=== PATIENT | female | born 1935 | race Caucasian/White ===

== ENCOUNTER 2017-04-25 19:57 | Inpatient (IN) | payer MEDICARE, MEDICAID ==
[~2017-04-25] VITALS: Ht 152.4 cm; Wt 103.0 kg
[~2017-04-25 19:57] MED LIST: BIMA2.5D4 EACHEYE; BRIM5DRO EACHEYE
[2017-04-25 20:00] VITALS: BP 143/56
[2017-04-25 21:18] VITALS: BP 143/56
[2017-04-25] MEDS ORDERED: HYDR-519 PO (21:25)
[2017-04-25] MEDS ORDERED: GABA-529 PO (21:27)
[2017-04-25] MEDS ORDERED: CILO100T PO (21:28)
[2017-04-25] MEDS ORDERED: FURO40TA5 PO (21:29)
[2017-04-25] MEDS ORDERED: PANT40TA4 PO (21:29)
[2017-04-25] MEDS ORDERED: CLON0.1T PO (21:33)
[2017-04-25] MEDS ORDERED: NIFE90TA2 PO (21:34)
[2017-04-25] MEDS ORDERED: METO50TA5 PO (21:35)
[2017-04-25] MEDS ORDERED: HYDROCODONE/ACETAMINOPHEN 10/325MG TABLET PO PRN (22:45)
[2017-04-25] MEDS ORDERED: DEXTROSE 50% WATER 50ML SYRINGE IV PRN (22:45)
[2017-04-25] MEDS ORDERED: MEDICATION NOT ON FORMULARY EA (Brimonidine Tartrate (Alphagan P) 1 DROP) EACHEYE SCH (22:45)
[2017-04-25] MEDS ORDERED: VANCOMYCIN 1 G PREMIX 200 ML IV STA (22:52)
[2017-04-25 23:28] LABS: BASOPHILS % 0.7 % (0.0-2.0); HEMATOCRIT. 34.9 % (36.0-48.0); HEMOGLOBIN. 11.8 g/dL (12.0-16.0); LYMPHOCYTES % 23.8 % (20.0-50.0); MEAN CORPUSCULAR HEMOGLOBIN 29.5 pg (28.0-32.0); MEAN CORPUSCULAR VOLUME 87.3 fL (81.0-99.0); MEAN PLATELET VOLUME 9.3 fl (7.4-10.4); MONOCYTES % 7.4 % (2.0-8.0); NEUTROPHILS % 65.1 % (40.0-76.0); PLATELET 208 x1000/uL (130-400); RED CELL DISTRIBUTION WIDTH 14.7 % (11.6-14.6)
[2017-04-26] VITALS: BP 125/50
[2017-04-26] MEDS ORDERED: VANCOMYCIN 1500MG in DEXTROSE 5% WATER 250ML IV NR (01:00)
[2017-04-26] MEDS ORDERED: CEFEPIME HCL 1000MG/VIAL INJ IM SCH ×2 (03:00)
[2017-04-26 04:00] VITALS: BP 111/77
[2017-04-26] MEDS: BLOOD SUGAR DIAGNOSTIC STRIP TEST SCH ×4 (07:35→21:17)
[2017-04-26] MEDS: PANTOPRAZOLE 40MG DR TABLET PO SCH ×2 (07:37→17:30)
[2017-04-26 08:00] VITALS: BP 126/49
[2017-04-26] MEDS: NIFEDIPINE XL 90MG TAB PO SCH (08:34)
[2017-04-26] MEDS: CILOSTAZOL 100MG TABLET PO SCH ×2 (08:34→17:30)
[2017-04-26] MEDS: CLONIDINE 0.1MG TABLET PO SCH ×2 (08:34→21:08)
[2017-04-26] MEDS: GABAPENTIN 100MG CAPSULE PO SCH ×2 (08:35→17:31)
[2017-04-26] MEDS: METOPROLOL TARTRATE 50MG TABLET PO SCH ×2 (08:35→21:08)
[2017-04-26] MEDS: FUROSEMIDE 40MG TABLET PO SCH ×2 (08:36→21:08)
[2017-04-26] MEDS: BRIMONIDINE 0.2% OPHTH DROPS 5ML EACHEYE SCH ×2 (08:36→17:31)
[2017-04-26] MEDS: ENOXAPARIN 40MG/0.4ML SYR SUBCUT SCH ×2 (08:39→21:09)
[2017-04-26] MEDS: INSULIN LISPRO 100 UNITS/ML SUBCUT SCH ×4 (08:41→21:17)
[2017-04-26 12:00] VITALS: BP 146/57
[2017-04-26] MEDS: HYDROCODONE/ACETAMINOPHEN 10/325MG TABLET PO PRN (13:33)
[2017-04-26 15:00] VITALS: BP 152/57
[2017-04-26 20:00] VITALS: BP 131/64
[2017-04-26] MEDS ORDERED: MEDICATION NOT ON FORMULARY EA (Bimatoprost (Lumigan) 1 DROP) EACHEYE SCH (21:00)
[2017-04-26] MEDS: LATANOPROST 0.005% OPHTH DROPS 2.5ML EACHEYE SCH (21:07)
[2017-04-27] VITALS: BP 142/60
[2017-04-27] MEDS: CLONIDINE 0.1MG TABLET PO SCH ×2 (01:04→21:20)
[2017-04-27] MEDS ORDERED: CEFEPIME HCL 1000MG/VIAL INJ IM SCH (02:00)
[2017-04-27] MEDS: HYDROCODONE/ACETAMINOPHEN 10/325MG TABLET PO PRN ×2 (02:39→21:41)
[2017-04-27] MEDS ORDERED: CEFEPIME 1,000 MG in DEXTROSE 5% WATER 50 ML IV ONE (02:45)
[2017-04-27] MEDS: CEFEPIME 1,000 MG in DEXTROSE 5% WATER 50 ML IV SCH (02:54)
[2017-04-27 04:00] VITALS: BP 132/50
[2017-04-27] MEDS: VANCOMYCIN 750 MG PREMIX 150 ML IV SCH (04:53)
[2017-04-27] MEDS: BLOOD SUGAR DIAGNOSTIC STRIP TEST SCH ×4 (06:47→21:21)
[2017-04-27] MEDS: PANTOPRAZOLE 40MG DR TABLET PO SCH ×2 (06:51→17:45)
[2017-04-27 07:04] LABS: BASOPHILS % 0.6 % (0.0-2.0); EOSINOPHILS % 3.2 % (0.0-5.0); HEMATOCRIT. 33.8 % (36.0-48.0); HEMOGLOBIN. 11.2 g/dL (12.0-16.0); LYMPHOCYTES % 25.3 % (20.0-50.0); MEAN CORPUSCULAR HEMOGLOBIN 28.8 pg (28.0-32.0); MEAN PLATELET VOLUME 9.5 fl (7.4-10.4); NEUTROPHILS % 62.9 % (40.0-76.0); PLATELET 201 x1000/uL (130-400); RED BLOOD CELL COUNT 3.89 mill/uL (4.2-5.4); RED CELL DISTRIBUTION WIDTH 14.8 % (11.6-14.6)
[2017-04-27 08:00] VITALS: BP 142/57
[2017-04-27] MEDS: INSULIN LISPRO 100 UNITS/ML SUBCUT SCH ×4 (09:41→21:39)
[2017-04-27] MEDS: CILOSTAZOL 100MG TABLET PO SCH ×2 (10:57→17:44)
[2017-04-27] MEDS: BRIMONIDINE 0.2% OPHTH DROPS 5ML EACHEYE SCH ×2 (10:57→17:51)
[2017-04-27] MEDS: FUROSEMIDE 40MG TABLET PO SCH ×2 (10:58→21:20)
[2017-04-27] MEDS: NIFEDIPINE XL 90MG TAB PO SCH (10:58)
[2017-04-27] MEDS: GABAPENTIN 100MG CAPSULE PO SCH ×2 (10:58→17:44)
[2017-04-27] MEDS: METOPROLOL TARTRATE 50MG TABLET PO SCH ×2 (10:59→21:21)
[2017-04-27] MEDS: ENOXAPARIN 40MG/0.4ML SYR SUBCUT SCH ×2 (10:59→21:21)
[2017-04-27 12:00] VITALS: BP 104/53
[2017-04-27 16:00] VITALS: BP 139/53
[2017-04-27 20:00] VITALS: BP 136/55
[2017-04-27] MEDS: LATANOPROST 0.005% OPHTH DROPS 2.5ML EACHEYE SCH (21:24)
[2017-04-28] VITALS: BP 106/70
[2017-04-28] MEDS: CEFEPIME 1,000 MG in DEXTROSE 5% WATER 50 ML IV SCH (03:00)
[2017-04-28 04:00] VITALS: BP 114/51
[2017-04-28] MEDS: VANCOMYCIN 750 MG PREMIX 150 ML IV SCH (05:49)
[2017-04-28] MEDS: PANTOPRAZOLE 40MG DR TABLET PO SCH ×2 (06:51→16:50)
[2017-04-28] MEDS: BLOOD SUGAR DIAGNOSTIC STRIP TEST SCH ×4 (06:51→21:00)
[2017-04-28 08:00] VITALS: BP 127/50
[2017-04-28] MEDS: CILOSTAZOL 100MG TABLET PO SCH ×2 (08:56→16:49)
[2017-04-28] MEDS: FUROSEMIDE 40MG TABLET PO SCH ×2 (08:56→22:34)
[2017-04-28] MEDS: CLONIDINE 0.1MG TABLET PO SCH ×2 (08:56→22:34)
[2017-04-28] MEDS: NIFEDIPINE XL 90MG TAB PO SCH (08:56)
[2017-04-28] MEDS: METOPROLOL TARTRATE 50MG TABLET PO SCH ×2 (08:57→22:35)
[2017-04-28] MEDS: GABAPENTIN 100MG CAPSULE PO SCH ×2 (08:57→16:50)
[2017-04-28] MEDS: ENOXAPARIN 40MG/0.4ML SYR SUBCUT SCH ×2 (08:58→22:33)
[2017-04-28] MEDS: INSULIN LISPRO 100 UNITS/ML SUBCUT SCH ×4 (09:02→22:42)
[2017-04-28] MEDS: BRIMONIDINE 0.2% OPHTH DROPS 5ML EACHEYE SCH ×2 (09:03→16:51)
[2017-04-28 12:00] VITALS: BP 131/50
[2017-04-28] MEDS: HYDROCODONE/ACETAMINOPHEN 10/325MG TABLET PO PRN (15:44)
[2017-04-28 16:00] VITALS: BP 119/47
[2017-04-28 20:00] VITALS: BP 129/56
[2017-04-28] MEDS: LATANOPROST 0.005% OPHTH DROPS 2.5ML EACHEYE SCH (22:34)
[2017-04-29] VITALS: BP 134/56
[2017-04-29] MEDS: CEFEPIME 1,000 MG in DEXTROSE 5% WATER 50 ML IV SCH (03:00)
[2017-04-29] MEDS: VANCOMYCIN 750 MG PREMIX 150 ML IV SCH (05:00)
[2017-04-29] MEDS: INSULIN LISPRO 100 UNITS/ML SUBCUT SCH ×2 (07:50→12:39)
[2017-04-29] MEDS: BLOOD SUGAR DIAGNOSTIC STRIP TEST SCH ×2 (08:00→12:35)
[2017-04-29] MEDS ORDERED: LIDOCAINE HCL 1% 20ML VIAL (Pyxis) INJ ONE (09:46)
[2017-04-29] MEDS: NIFEDIPINE XL 90MG TAB PO SCH (11:10)
[2017-04-29] MEDS: CILOSTAZOL 100MG TABLET PO SCH (11:10)
[2017-04-29] MEDS: PANTOPRAZOLE 40MG DR TABLET PO SCH (11:10)
[2017-04-29] MEDS: CLONIDINE 0.1MG TABLET PO SCH (11:10)
[2017-04-29] MEDS: FUROSEMIDE 40MG TABLET PO SCH (11:10)
[2017-04-29] MEDS: METOPROLOL TARTRATE 50MG TABLET PO SCH (11:11)
[2017-04-29] MEDS: ENOXAPARIN 40MG/0.4ML SYR SUBCUT SCH (11:11)
[2017-04-29] MEDS: GABAPENTIN 100MG CAPSULE PO SCH (11:11)
[2017-04-29] MEDS: BRIMONIDINE 0.2% OPHTH DROPS 5ML EACHEYE SCH (11:11)
[2017-04-29] MEDS: HYDROCODONE/ACETAMINOPHEN 10/325MG TABLET PO PRN (17:37)
[2017-04-29 18:16] VITALS: BP 120/64
== END 2017-04-29 17:40 | disposition home health service (06) | DRG 603 ==
LOC: 6EST 19:57
PROVIDERS: ADMIT Internal Medicine; ATTEND Internal Medicine
PROC: 02HV33Z Insertion of Infusion Device into Superior Vena Cava, Percutaneous Approach (ICD-10-PCS; principal; 2017-04-29)
PROC: B5181ZA Fluoroscopy of Superior Vena Cava using Low Osmolar Contrast, Guidance (ICD-10-PCS; 2017-04-29)
PROC: B548ZZA Ultrasonography of Superior Vena Cava, Guidance (ICD-10-PCS; 2017-04-29)
DX: L03.116 Cellulitis of left lower limb (principal); E11.42 Type 2 diabetes mellitus with diabetic polyneuropathy; Z68.41 Body mass index [BMI] 40.0-44.9, adult; E66.01 Morbid (severe) obesity due to excess calories; L03.115 Cellulitis of right lower limb; I10 Essential (primary) hypertension; M51.86 Other intervertebral disc disorders, lumbar region; Z79.4 Long term (current) use of insulin
CPT/HCPCS: 36415; 36569; 76937; 77001; 80048; 82962; 85025; 87040; C1725; C1893; J0692; J1650; J1815; J3370; J3490; J7030; J7060

== ENCOUNTER 2019-04-30 14:32 | Emergency (ER) | payer MEDICARE, MEDICAID ==
[~2019-04-30] VITALS: Ht 160 cm; Wt 100.0 kg
[~2019-04-30 14:32] MED LIST changes: +CARI350T27 PO; +CILO50TA PO; +CLON0.1T PO; +FURO40TA5 PO; +GABA-529 PO; +HYDR-519 PO; +LEVVL SQ; +METO-539 PO; +NIFE90TA2 PO; +PANT40TA4 PO; +PYRI200T10 PO
[2019-04-30] MEDS ORDERED: ACETAMINOPHEN 650MG/20.3ML UDC PO ONE (16:30)
[2019-04-30] MEDS ORDERED: TETANUS, DIPHTHERIA, PERTUSSIS VAC/PF 0.5ML (>7YR OLD) IM ONE (18:00)
[2019-04-30] MEDS ORDERED: LIDOCAINE HCL/PF 1% 10 MG/ML 5ML VIAL IJ ONE (18:00)
[2019-04-30] MEDS ORDERED: BACITRACIN/POLYMYXIN B SULFATE OINT 15GM TOP ONE (18:00)
[2019-04-30 18:55] VITALS: BP 168/77
== END 2019-04-30 18:56 | disposition home or self-care (01) ==
LOC: ER 14:46
DX: S81.812A Laceration without foreign body, left lower leg, initial encounter (principal); Z23 Encounter for immunization; W01.0XXA Fall on same level from slipping, tripping and stumbling without subsequent striking against object, initial encounter; Y93.01 Activity, walking, marching and hiking; Y92.89 Other specified places as the place of occurrence of the external cause; Y99.8 Other external cause status
CPT/HCPCS: 73590; 90471; 90715; 99283; J3490

== ENCOUNTER 2021-01-02 11:30 | Inpatient (IN) | payer MEDICARE, MEDICAID ==
[~2021-01-02] VITALS: Ht 157.5 cm; Wt 103.0 kg
[~2021-01-02 11:30] MED LIST changes: -PANT40TA4 PO; +PANT40TA51 PO
[2021-01-02 12:47] LABS: BASOPHILS % 0.4 % (0.0-2.0); HEMATOCRIT. 32.7 % (36.0-48.0); HEMOGLOBIN. 11.5 g/dL (12.0-16.0); MEAN CORPUSCULAR HEMOGLOBIN 30.7 pg (28.0-32.0); MEAN CORPUSCULAR VOLUME 86.9 fL (81.0-99.0); MEAN PLATELET VOLUME 8.8 fl (7.4-10.4); MONOCYTES % 7.4 % (2.0-8.0); NEUTROPHILS % 77.2 % (40.0-76.0); PLATELET 336 x1000/uL (130-400); RED BLOOD CELL COUNT 3.76 mill/uL (4.2-5.4); RED CELL DISTRIBUTION WIDTH 14.7 % (11.6-14.6)
[2021-01-02 12:48] LABS: CHLORIDE 98 mEq/L (98-107)
[2021-01-02] MEDS ORDERED: ACETAMINOPHEN 650MG SUPP PR PRN (14:15)
[2021-01-02] MEDS ORDERED: ACETAMINOPHEN 325MG TABLET PO PRN (14:15)
[2021-01-02] MEDS ORDERED: GUAIFENESIN 200MG/10ML SUGAR FREE UDC PO PRN (14:15)
[2021-01-02] MEDS ORDERED: DEXTROSE 50% WATER 50ML SYRINGE IV PRN (14:15)
[2021-01-02] MEDS ORDERED: NA PHOS,M-B/NA PHOS,DI-BA ENEMA 118ML PR PRN (14:15)
[2021-01-02] MEDS ORDERED: DOCUSATE SODIUM 100MG CAPSULE PO PRN (14:15)
[2021-01-02] MEDS ORDERED: MAGNESIUM/ALUMINUM HYDROXIDE/SIMETHICONE 30ML UDC PO PRN (14:15)
[2021-01-02] MEDS ORDERED: DIPHENHYDRAMINE 50MG/ML VIAL IV PRN (14:15)
[2021-01-02] MEDS ORDERED: IPRATROPIUM/ALBUTEROL 0.5-3(2.5)MG/3ML NEB NEB PRN (14:15)
[2021-01-02] MEDS ORDERED: ONDANSETRON HCL 4MG/2ML INJ IV PRN (14:15)
[2021-01-02] MEDS ORDERED: LORAZEPAM 0.5MG TABLET PO PRN (14:15)
[2021-01-02] MEDS ORDERED: CEFTRIAXONE 1 G PREMIX 50 ML IV SCH (16:00)
[2021-01-02] MEDS: SODIUM CHLORIDE 0.9% 1,000 ML IV SCH (17:00)
[2021-01-02] MEDS: BLOOD SUGAR DIAGNOSTIC STRIP TEST SCH (17:30)
[2021-01-02] MEDS: HYDROCODONE/ACETAMINOPHEN 5/325MG TABLET PO PRN (17:36)
[2021-01-02] MEDS: INSULIN LISPRO 100 UNITS/ML SUBCUT SCH (18:51)
[2021-01-02 20:04] LABS: INR 1.1; PROTHROMBIN TIME 11.5 sec (9.6-11.0)
[2021-01-02 21:58] LABS: CLARITY URINE CLEAR (CLEAR); COLOR URINE YELLOW (YELLOW); KETONES URINE NEGATIVE (NEGATIVE); LEUKOCYTE ESTERASE URINE 3+ (NEGATIVE); NITRITE URINE POSITIVE (NEGATIVE); OCCULT BLOOD URINE TRACE (NEGATIVE); PROTEIN URINE NEGATIVE (NEGATIVE); SPECIFIC GRAVITY URINE 1.011 (1.005-1.030); UROBILINOGEN URINE 0.2 E.U./dL (0.2-1.0)
[2021-01-02] MEDS: FAMOTIDINE 20MG TABLET PO SCH (21:59)
[2021-01-02 23:00] VITALS: BP 169/58
[2021-01-03] VITALS: BP 169/58
[2021-01-03] MEDS: HYDROCODONE/ACETAMINOPHEN 5/325MG TABLET PO PRN (01:00)
[2021-01-03] MEDS ORDERED: LEVO25TA7 MT (02:20)
[2021-01-03] MEDS ORDERED: LOSA50TA41 MT (02:20)
[2021-01-03] MEDS ORDERED: LEVVL SQ (02:20)
[2021-01-03] MEDS ORDERED: DULO30CA52 MT (02:20)
[2021-01-03 04:00] VITALS: BP 160/70
[2021-01-03] MEDS: CLONIDINE 0.1MG TABLET PO PRN ×2 (05:38→10:39)
[2021-01-03 07:20] LABS: BASOPHILS % 0.6 % (0.0-2.0); EOSINOPHILS % 1.1 % (0.0-5.0); HEMATOCRIT. 35.4 % (36.0-48.0); HEMOGLOBIN. 11.9 g/dL (12.0-16.0); LYMPHOCYTES % 16.1 % (20.0-50.0); MEAN CORPUSCULAR HEMOGLOBIN 29.1 pg (28.0-32.0); MEAN CORPUSCULAR VOLUME 86.9 fL (81.0-99.0); MEAN PLATELET VOLUME 9.1 fl (7.4-10.4); MONOCYTES % 8.2 % (2.0-8.0); PLATELET 390 x1000/uL (130-400); RED BLOOD CELL COUNT 4.08 mill/uL (4.2-5.4); RED CELL DISTRIBUTION WIDTH 14.7 % (11.6-14.6)
[2021-01-03 07:24] LABS: CHLORIDE 101 mEq/L (98-107)
[2021-01-03 07:49] LABS: LDL CHOLESTEROL 84 mg/dL (5-100)
[2021-01-03] MEDS: INSULIN LISPRO 100 UNITS/ML SUBCUT SCH ×5 (07:50→21:07)
[2021-01-03 07:51] LABS: T4 FREE 1.28 ng/dL (0.76-1.46)
[2021-01-03 07:53] LABS: HDL CHOLESTEROL 35 mg/dL (40-59)
[2021-01-03 08:00] VITALS: BP 177/60
[2021-01-03] MEDS: MORPHINE SULFATE 2 MG/ML CPJ (NOT FOR IM USE) IV PRN (10:41)
[2021-01-03 12:00] VITALS: BP 157/59
[2021-01-03] MEDS: BLOOD SUGAR DIAGNOSTIC STRIP TEST SCH ×3 (12:19→20:56)
[2021-01-03] MEDS ORDERED: POTASSIUM CHLORIDE 20MEQ TABLET SR PO SCH (14:00)
[2021-01-03 16:00] VITALS: BP 182/62
[2021-01-03] MEDS: FUROSEMIDE 40MG TABLET PO SCH (18:16)
[2021-01-03] MEDS: CLONIDINE 0.1MG TABLET PO SCH (18:16)
[2021-01-03] MEDS: CEFTRIAXONE 1,000 MG in DEXTROSE 5% WATER 50 ML IV SCH (18:17)
[2021-01-03 20:00] VITALS: BP 118/70
[2021-01-03] MEDS: METOPROLOL TARTRATE 50MG TABLET PO SCH (21:05)
[2021-01-03] MEDS: PANTOPRAZOLE 40MG DR TABLET PO SCH (21:06)
[2021-01-03] MEDS: FAMOTIDINE 20MG TABLET PO SCH (21:06)
[2021-01-03] MEDS: INSULIN GLARGINE UD 100 UNITS/ML SYR SUBCUT SCH (21:07)
[2021-01-04] VITALS (7 sets, daily range): BP systolic 97–164; BP diastolic 41–71
[2021-01-04] MEDS: FUROSEMIDE 40MG TABLET PO SCH ×2 (06:32→17:23)
[2021-01-04] MEDS: LEVOTHYROXINE SODIUM 25MCG TABLET PO SCH (06:32)
[2021-01-04] MEDS: SODIUM CHLORIDE 0.9% 1,000 ML IV SCH (06:32)
[2021-01-04 06:59] LABS: BASOPHILS % 0.5 % (0.0-2.0); EOSINOPHILS % 1.8 % (0.0-5.0); HEMATOCRIT. 34.9 % (36.0-48.0); HEMOGLOBIN. 11.9 g/dL (12.0-16.0); LYMPHOCYTES % 17.3 % (20.0-50.0); MEAN CORPUSCULAR HEMOGLOBIN 29.7 pg (28.0-32.0); MEAN PLATELET VOLUME 8.8 fl (7.4-10.4); MONOCYTES % 9.5 % (2.0-8.0); NEUTROPHILS % 70.9 % (40.0-76.0); PLATELET 393 x1000/uL (130-400); RED BLOOD CELL COUNT 4.01 mill/uL (4.2-5.4); RED CELL DISTRIBUTION WIDTH 14.9 % (11.6-14.6)
[2021-01-04] MEDS: BLOOD SUGAR DIAGNOSTIC STRIP TEST SCH ×4 (07:20→21:00)
[2021-01-04] MEDS: CLONIDINE 0.1MG TABLET PO SCH ×2 (09:09→17:24)
[2021-01-04] MEDS: DULOXETINE HCL 30MG DR CAPSULE PO SCH (09:09)
[2021-01-04] MEDS: NIFEDIPINE XL 90MG TAB PO SCH (09:09)
[2021-01-04] MEDS: METOPROLOL TARTRATE 50MG TABLET PO SCH ×2 (09:10→22:01)
[2021-01-04] MEDS: LOSARTAN POTASSIUM 50 MG TABLET PO SCH (09:10)
[2021-01-04] MEDS: PANTOPRAZOLE 40MG DR TABLET PO SCH ×2 (09:10→22:00)
[2021-01-04] MEDS: MORPHINE SULFATE 2 MG/ML CPJ (NOT FOR IM USE) IV PRN (09:24)
[2021-01-04] MEDS: INSULIN LISPRO 100 UNITS/ML SUBCUT SCH ×4 (09:39→22:05)
[2021-01-04] MEDS: CEFTRIAXONE 1,000 MG in DEXTROSE 5% WATER 50 ML IV SCH (17:23)
[2021-01-04] MEDS: CLOTRIMAZOLE/BETAMETHASONE 1/0.05% CREAM 15GM TOP SCH (18:00)
[2021-01-04] MEDS: INSULIN GLARGINE UD 100 UNITS/ML SYR SUBCUT SCH (22:00)
[2021-01-04] MEDS: FAMOTIDINE 20MG TABLET PO SCH (22:00)
[2021-01-05 06:27] LABS: BASOPHILS % 0.5 % (0.0-2.0); EOSINOPHILS % 1.6 % (0.0-5.0); HEMATOCRIT. 34.2 % (36.0-48.0); HEMOGLOBIN. 11.7 g/dL (12.0-16.0); LYMPHOCYTES % 18.1 % (20.0-50.0); MEAN CORPUSCULAR HEMOGLOBIN 29.8 pg (28.0-32.0); MEAN CORPUSCULAR VOLUME 87.3 fL (81.0-99.0); MONOCYTES % 8.2 % (2.0-8.0); NEUTROPHILS % 71.6 % (40.0-76.0); PLATELET 372 x1000/uL (130-400); RED BLOOD CELL COUNT 3.92 mill/uL (4.2-5.4); RED CELL DISTRIBUTION WIDTH 14.6 % (11.6-14.6)
[2021-01-05] MEDS: LEVOTHYROXINE SODIUM 25MCG TABLET PO SCH (06:54)
[2021-01-05] MEDS: FUROSEMIDE 40MG TABLET PO SCH ×2 (06:54→16:43)
[2021-01-05] MEDS: BLOOD SUGAR DIAGNOSTIC STRIP TEST SCH ×4 (07:07→20:51)
[2021-01-05 08:00] VITALS: BP 132/60
[2021-01-05] MEDS: LOSARTAN POTASSIUM 50 MG TABLET PO SCH (08:27)
[2021-01-05] MEDS: METOPROLOL TARTRATE 50MG TABLET PO SCH ×2 (08:27→20:51)
[2021-01-05] MEDS: NIFEDIPINE XL 90MG TAB PO SCH (08:28)
[2021-01-05] MEDS: DULOXETINE HCL 30MG DR CAPSULE PO SCH (08:28)
[2021-01-05] MEDS: PANTOPRAZOLE 40MG DR TABLET PO SCH ×2 (08:28→20:50)
[2021-01-05] MEDS: CLOTRIMAZOLE/BETAMETHASONE 1/0.05% CREAM 15GM TOP SCH ×2 (08:28→16:54)
[2021-01-05] MEDS: CLONIDINE 0.1MG TABLET PO SCH ×2 (08:28→16:43)
[2021-01-05] MEDS: INSULIN LISPRO 100 UNITS/ML SUBCUT SCH ×4 (08:33→20:52)
[2021-01-05] MEDS: SODIUM CHLORIDE 0.9% 1,000 ML IV SCH (08:34)
[2021-01-05] MEDS ORDERED: POTASSIUM CHLORIDE 20MEQ TABLET SR PO NR (11:45)
[2021-01-05 12:00] VITALS: BP 148/53
[2021-01-05] MEDS: MORPHINE SULFATE 2 MG/ML CPJ (NOT FOR IM USE) IV PRN ×2 (12:13→16:44)
[2021-01-05 16:00] VITALS: BP 152/50
[2021-01-05] MEDS: CEFTRIAXONE 1,000 MG in DEXTROSE 5% WATER 50 ML IV SCH (16:41)
[2021-01-05 17:00] VITALS: BP 130/54
[2021-01-05] MEDS ORDERED: DEXAMETHASONE 4MG TABLET PO SCH (18:00)
[2021-01-05 20:00] VITALS: BP 127/51
[2021-01-05] MEDS: FAMOTIDINE 20MG TABLET PO SCH (20:50)
[2021-01-05] MEDS: DEXAMETHASONE 4MG TABLET PO SCH (20:51)
[2021-01-05] MEDS: INSULIN GLARGINE UD 100 UNITS/ML SYR SUBCUT SCH (22:14)
[2021-01-06] VITALS (9 sets, daily range): BP systolic 110–196; BP diastolic 54–71
[2021-01-06] MEDS: LEVOTHYROXINE SODIUM 25MCG TABLET PO SCH (06:24)
[2021-01-06] MEDS: BLOOD SUGAR DIAGNOSTIC STRIP TEST SCH ×4 (07:41→21:53)
[2021-01-06 07:42] LABS: HEMATOCRIT 33.4 % (36.0-48.0); HEMOGLOBIN 11.4 g/dL (12.0-16.0); MEAN CORPUSCULAR VOLUME 88.1 fL (81.0-99.0); PLATELET 311 x1000/uL (130-400); RED BLOOD CELL COUNT 3.79 mill/uL (4.2-5.4); RED CELL DISTRIBUTION WIDTH 14.7 % (11.6-14.6)
[2021-01-06] MEDS ORDERED: FUROSEMIDE 40MG TABLET PO SCH (09:00)
[2021-01-06] MEDS: PANTOPRAZOLE 40MG DR TABLET PO SCH (09:12)
[2021-01-06] MEDS: DEXAMETHASONE 4MG TABLET PO SCH (09:13)
[2021-01-06] MEDS: DULOXETINE HCL 30MG DR CAPSULE PO SCH (09:13)
[2021-01-06] MEDS: CLOTRIMAZOLE/BETAMETHASONE 1/0.05% CREAM 15GM TOP SCH ×2 (09:13→17:35)
[2021-01-06] MEDS: INSULIN LISPRO 100 UNITS/ML SUBCUT SCH ×4 (09:18→21:51)
[2021-01-06] MEDS: NIFEDIPINE XL 90MG TAB PO SCH (09:20)
[2021-01-06] MEDS: METOPROLOL TARTRATE 50MG TABLET PO SCH ×2 (09:20→21:53)
[2021-01-06] MEDS: LOSARTAN POTASSIUM 50 MG TABLET PO SCH (09:20)
[2021-01-06] MEDS: CLONIDINE 0.1MG TABLET PO SCH ×2 (09:22→17:41)
[2021-01-06] MEDS: CEFTRIAXONE 1,000 MG in DEXTROSE 5% WATER 50 ML IV SCH (17:35)
[2021-01-06] MEDS: AZITHROMYCIN 500 MG in DEXT 5% WATER 250 ML IV SCH (18:10)
[2021-01-06] MEDS: IPRATROPIUM/ALBUTEROL 0.5-3(2.5)MG/3ML NEB HHN SCH (20:51)
[2021-01-06] MEDS: INSULIN GLARGINE UD 100 UNITS/ML SYR SUBCUT SCH (21:51)
[2021-01-06] MEDS: FAMOTIDINE 20MG TABLET PO SCH (21:52)
[2021-01-06] MEDS: GUAIFENESIN 600MG ER TABLET PO SCH (21:52)
[2021-01-07] VITALS: BP 139/52
[2021-01-07] MEDS: IPRATROPIUM/ALBUTEROL 0.5-3(2.5)MG/3ML NEB HHN SCH ×3 (01:19→12:00)
[2021-01-07] MEDS: MORPHINE SULFATE 2 MG/ML CPJ (NOT FOR IM USE) IV PRN (01:20)
[2021-01-07 04:00] VITALS: BP 148/59
[2021-01-07 06:15] LABS: BASOPHILS % 0.4 % (0.0-2.0); HEMATOCRIT. 34.6 % (36.0-48.0); HEMOGLOBIN. 11.6 g/dL (12.0-16.0); LYMPHOCYTES % 14.2 % (20.0-50.0); MEAN CORPUSCULAR HEMOGLOBIN 29.2 pg (28.0-32.0); MEAN CORPUSCULAR VOLUME 87.1 fL (81.0-99.0); MONOCYTES % 6.4 % (2.0-8.0); PLATELET 335 x1000/uL (130-400); RED BLOOD CELL COUNT 3.97 mill/uL (4.2-5.4); RED CELL DISTRIBUTION WIDTH 14.4 % (11.6-14.6)
[2021-01-07] MEDS: BLOOD SUGAR DIAGNOSTIC STRIP TEST SCH ×4 (06:34→21:52)
[2021-01-07] MEDS: LEVOTHYROXINE SODIUM 25MCG TABLET PO SCH (06:34)
[2021-01-07] MEDS: INSULIN LISPRO 100 UNITS/ML SUBCUT SCH ×5 (07:36→21:51)
[2021-01-07 08:00] VITALS: BP 163/68
[2021-01-07] MEDS: LOSARTAN POTASSIUM 50 MG TABLET PO SCH (08:19)
[2021-01-07] MEDS: CLONIDINE 0.1MG TABLET PO SCH ×2 (08:19→18:43)
[2021-01-07] MEDS: NIFEDIPINE XL 90MG TAB PO SCH (08:20)
[2021-01-07] MEDS: GUAIFENESIN 600MG ER TABLET PO SCH ×2 (08:20→21:49)
[2021-01-07] MEDS: METOPROLOL TARTRATE 50MG TABLET PO SCH ×2 (08:20→21:49)
[2021-01-07] MEDS: DULOXETINE HCL 30MG DR CAPSULE PO SCH (08:20)
[2021-01-07] MEDS: CLOTRIMAZOLE/BETAMETHASONE 1/0.05% CREAM 15GM TOP SCH ×2 (08:21→18:44)
[2021-01-07] MEDS: DEXAMETHASONE 4MG TABLET PO SCH (09:38)
[2021-01-07] MEDS ORDERED: POTASSIUM CHLORIDE 20MEQ TABLET SR PO NR (11:30)
[2021-01-07 12:00] VITALS: BP 160/56
[2021-01-07] MEDS: CLONIDINE 0.1MG TABLET PO PRN (13:56)
[2021-01-07 16:00] VITALS: BP 150/59
[2021-01-07] MEDS: CEFTRIAXONE 1,000 MG in DEXTROSE 5% WATER 50 ML IV SCH (16:24)
[2021-01-07] MEDS: AZITHROMYCIN 500 MG in DEXT 5% WATER 250 ML IV SCH (18:44)
[2021-01-07 18:48] LABS: BG BASE EXCESS -0.1 mmol/L (-2.0-2.0); BG CARBOXYHEMOGLOBIN 0.2 % (0.5-1.5); BG DEOXYHEMOGLOBIN 4.6 % (0.0-5.0); BG FRACTION INSPIRED OXYGEN 21; BG OXYGEN SATURATION 95.4 % (92.0-98.5); BG OXYHEMOGLOBIN 95.2 % (94.0-97.0); BG PCO2 32.8 mmHg (35.0-45.0); BG PH 7.464 (7.350-7.450); BG PO2 74.2 mmHg (75.0-100.0); BG SAMPLE SITE RIGHT RADIAL; BG TOTAL HEMOGLOBIN 13.1 g/dL (12.0-18.0); BG VENT MODE ROOM AIR
[2021-01-07 20:00] VITALS: BP 104/59
[2021-01-07] MEDS: FAMOTIDINE 20MG TABLET PO SCH (21:48)
[2021-01-07] MEDS: INSULIN GLARGINE UD 100 UNITS/ML SYR SUBCUT SCH (21:52)
[2021-01-08] VITALS: BP 158/67
[2021-01-08] MEDS: IPRATROPIUM/ALBUTEROL 0.5-3(2.5)MG/3ML NEB HHN SCH ×3 (02:49→15:08)
[2021-01-08 04:00] VITALS: BP 129/70
[2021-01-08] MEDS: LEVOTHYROXINE SODIUM 25MCG TABLET PO SCH (06:21)
[2021-01-08] MEDS: BLOOD SUGAR DIAGNOSTIC STRIP TEST SCH ×3 (06:21→17:20)
[2021-01-08 06:25] LABS: BASOPHILS % 0.5 % (0.0-2.0); EOSINOPHILS % 0.3 % (0.0-5.0); HEMATOCRIT. 35.5 % (36.0-48.0); HEMOGLOBIN. 12.1 g/dL (12.0-16.0); LYMPHOCYTES % 18.3 % (20.0-50.0); MEAN CORPUSCULAR HEMOGLOBIN 29.2 pg (28.0-32.0); MEAN PLATELET VOLUME 9.4 fl (7.4-10.4); MONOCYTES % 7.5 % (2.0-8.0); NEUTROPHILS % 73.4 % (40.0-76.0); PLATELET 407 x1000/uL (130-400); RED BLOOD CELL COUNT 4.13 mill/uL (4.2-5.4); RED CELL DISTRIBUTION WIDTH 14.8 % (11.6-14.6)
[2021-01-08] MEDS: INSULIN LISPRO 100 UNITS/ML SUBCUT SCH ×3 (07:50→18:01)
[2021-01-08 08:00] VITALS: BP 159/59
[2021-01-08] MEDS: NIFEDIPINE XL 90MG TAB PO SCH (09:26)
[2021-01-08] MEDS: DULOXETINE HCL 30MG DR CAPSULE PO SCH (09:27)
[2021-01-08] MEDS: DEXAMETHASONE 4MG TABLET PO SCH (09:27)
[2021-01-08] MEDS: METOPROLOL TARTRATE 50MG TABLET PO SCH (09:28)
[2021-01-08] MEDS: CLONIDINE 0.1MG TABLET PO SCH ×2 (09:28→17:47)
[2021-01-08] MEDS: LOSARTAN POTASSIUM 50 MG TABLET PO SCH (09:28)
[2021-01-08] MEDS: GUAIFENESIN 600MG ER TABLET PO SCH (09:28)
[2021-01-08] MEDS: CLOTRIMAZOLE/BETAMETHASONE 1/0.05% CREAM 15GM TOP SCH ×2 (09:30→18:11)
[2021-01-08] MEDS ORDERED: HYDROCODONE/ACETAMINOPHEN 5/325MG TABLET PO PRN (11:45)
[2021-01-08 12:00] VITALS: BP 104/51
[2021-01-08 16:00] VITALS: BP 139/55
[2021-01-08] MEDS ORDERED: POTASSIUM CHLORIDE 20MEQ TABLET SR PO NR (17:00)
[2021-01-08] MEDS: AZITHROMYCIN 500 MG in DEXT 5% WATER 250 ML IV SCH (18:06)
[2021-01-08 18:14] VITALS: BP 139/55
[2021-01-09] MEDS ORDERED: METO2.5T2 PO (12:52)
== END 2021-01-08 20:00 | DRG 551 ==
LOC: ER 11:30 → SUPCPDRO 14:04 → 6EST 17:31 → ENRESERV 19:46
PROVIDERS: ADMIT Internal Medicine; ATTEND Internal Medicine
DX: M48.061 Spinal stenosis, lumbar region without neurogenic claudication (principal); G93.41 Metabolic encephalopathy; G82.50 Quadriplegia, unspecified; L97.909 Non-pressure chronic ulcer of unspecified part of unspecified lower leg with unspecified severity; E87.1 Hypo-osmolality and hyponatremia; N17.9 Acute kidney failure, unspecified; N39.0 Urinary tract infection, site not specified; L03.115 Cellulitis of right lower limb; L03.116 Cellulitis of left lower limb; M47.26 Other spondylosis with radiculopathy, lumbar region; M48.02 Spinal stenosis, cervical region; B96.5 Pseudomonas (aeruginosa) (mallei) (pseudomallei) as the cause of diseases classified elsewhere; D64.9 Anemia, unspecified; E03.9 Hypothyroidism, unspecified; E11.65 Type 2 diabetes mellitus with hyperglycemia; E66.01 Morbid (severe) obesity due to excess calories; E78.00 Pure hypercholesterolemia, unspecified; F01.50 Vascular dementia, unspecified severity, without behavioral disturbance, psychotic disturbance, mood disturbance, and anxiety; E78.5 Hyperlipidemia, unspecified; G89.29 Other chronic pain; R26.9 Unspecified abnormalities of gait and mobility; I11.9 Hypertensive heart disease without heart failure; R13.10 Dysphagia, unspecified; Z79.02 Long term (current) use of antithrombotics/antiplatelets; Z79.4 Long term (current) use of insulin; Z79.899 Other long term (current) drug therapy; Z98.1 Arthrodesis status
CPT/HCPCS: 36415; 36600; 70551; 71045; 72100; 72141; 72146; 72148; 73590; 80048; 80053; 80061; 81003; 82375; 82805; 82962; 83036; 83880; 84439; 84443; 84484; 85025; 85027; 86850; 86900; 87077; 87186; 92523; 92610; 93005; 93306; 93970; 94640; 97116; 97162; 97166; 97530; 99285; J0456; J0696; J1815; J2270; J2405; J7040; J7060; J8540

== ENCOUNTER 2021-01-08 20:03 | Inpatient (IN) | payer MEDICARE, MEDICAID ==
[~2021-01-08] VITALS: Ht 149.9 cm; Wt 95.7 kg
[~2021-01-08 20:03] MED LIST changes: -CARI350T27 PO; +DULO30CA52 MT; +LEVO25TA7 MT; +LOSA50TA41 MT
[2021-01-08 20:05] VITALS: BP 135/59
[2021-01-08] MEDS ORDERED: CLONIDINE 0.1MG TABLET PO PRN (21:15)
[2021-01-08] MEDS ORDERED: NA PHOS,M-B/NA PHOS,DI-BA ENEMA 118ML PR PRN (21:15)
[2021-01-08] MEDS ORDERED: GUAIFENESIN 200MG/10ML SUGAR FREE UDC PO PRN (21:15)
[2021-01-08] MEDS ORDERED: ACETAMINOPHEN 650MG SUPP PR PRN (21:15)
[2021-01-08] MEDS ORDERED: DIPHENHYDRAMINE 50MG/ML VIAL IV PRN (21:15)
[2021-01-08] MEDS ORDERED: DEXTROSE 50% WATER 50ML SYRINGE IV PRN (21:15)
[2021-01-08] MEDS ORDERED: ONDANSETRON HCL 4MG/2ML INJ IV PRN (21:15)
[2021-01-08] MEDS ORDERED: MAGNESIUM/ALUMINUM HYDROXIDE/SIMETHICONE 30ML UDC PO PRN (21:15)
[2021-01-08] MEDS ORDERED: IPRATROPIUM/ALBUTEROL 0.5-3(2.5)MG/3ML NEB HHN PRN (21:15)
[2021-01-08] MEDS: METOPROLOL TARTRATE 50MG TABLET PO SCH (22:27)
[2021-01-08] MEDS: FAMOTIDINE 20MG TABLET PO SCH (22:27)
[2021-01-08] MEDS: BLOOD SUGAR DIAGNOSTIC STRIP TEST SCH (22:28)
[2021-01-08] MEDS: INSULIN GLARGINE UD 100 UNITS/ML SYR SUBCUT SCH (23:55)
[2021-01-08] MEDS: INSULIN LISPRO 100 UNITS/ML SUBCUT SCH (23:56)
[2021-01-08] MEDS: GUAIFENESIN 600MG ER TABLET PO SCH (23:57)
[2021-01-09] MEDS: IPRATROPIUM/ALBUTEROL 0.5-3(2.5)MG/3ML NEB HHN SCH ×4 (02:17→21:01)
[2021-01-09] MEDS: BLOOD SUGAR DIAGNOSTIC STRIP TEST SCH ×4 (06:04→20:59)
[2021-01-09] MEDS: LEVOTHYROXINE SODIUM 25MCG TABLET PO SCH (06:04)
[2021-01-09 06:54] LABS: CHLORIDE 107 mEq/L (98-107)
[2021-01-09 07:08] LABS: BASOPHILS % 1.1 % (0.0-2.0); EOSINOPHILS % 1.7 % (0.0-5.0); HEMATOCRIT. 35.7 % (36.0-48.0); HEMOGLOBIN. 12.2 g/dL (12.0-16.0); LYMPHOCYTES % 20.3 % (20.0-50.0); MEAN CORPUSCULAR HEMOGLOBIN 30.3 pg (28.0-32.0); MEAN CORPUSCULAR VOLUME 88.2 fL (81.0-99.0); MONOCYTES % 7.4 % (2.0-8.0); NEUTROPHILS % 69.5 % (40.0-76.0); PLATELET 373 x1000/uL (130-400); RED BLOOD CELL COUNT 4.05 mill/uL (4.2-5.4); RED CELL DISTRIBUTION WIDTH 14.7 % (11.6-14.6)
[2021-01-09] MEDS: INSULIN LISPRO 100 UNITS/ML SUBCUT SCH ×4 (07:23→21:14)
[2021-01-09 07:53] VITALS: BP 166/69
[2021-01-09] MEDS ORDERED: DULOXETINE HCL 30MG DR CAPSULE PO SCH (09:00)
[2021-01-09] MEDS ORDERED: FUROSEMIDE 40MG TABLET PO SCH (09:00)
[2021-01-09] MEDS: DEXAMETHASONE 4MG TABLET PO SCH (09:12)
[2021-01-09] MEDS: GUAIFENESIN 600MG ER TABLET PO SCH ×2 (09:12→21:14)
[2021-01-09] MEDS: CLOTRIMAZOLE/BETAMETHASONE 1/0.05% CREAM 15GM TOP SCH ×2 (09:13→19:12)
[2021-01-09] MEDS: CLONIDINE 0.1MG TABLET PO SCH ×2 (09:13→18:47)
[2021-01-09] MEDS: METOPROLOL TARTRATE 50MG TABLET PO SCH ×2 (09:13→20:58)
[2021-01-09] MEDS: NIFEDIPINE XL 90MG TAB PO SCH (09:13)
[2021-01-09] MEDS: LOSARTAN POTASSIUM 50 MG TABLET PO SCH (09:13)
[2021-01-09] MEDS: HYDROCODONE/ACETAMINOPHEN 5/325MG TABLET PO PRN ×3 (09:25→21:00)
[2021-01-09] MEDS ORDERED: METOLAZONE 2.5MG TABLET PO SCH (12:30)
[2021-01-09] MEDS ORDERED: METO2.5T2 PO (12:52)
[2021-01-09 15:48] LABS: CLARITY URINE CLEAR (CLEAR); COLOR URINE YELLOW (YELLOW); KETONES URINE NEGATIVE (NEGATIVE); LEUKOCYTE ESTERASE URINE NEGATIVE (NEGATIVE); NITRITE URINE NEGATIVE (NEGATIVE); OCCULT BLOOD URINE NEGATIVE (NEGATIVE); PROTEIN URINE 1+ (NEGATIVE); SPECIFIC GRAVITY URINE 1.012 (1.005-1.030); UROBILINOGEN URINE 0.2 E.U./dL (0.2-1.0)
[2021-01-09] MEDS ORDERED: AZITHROMYCIN 250 MG in DEXT 5% WATER 250 ML IV SCH (18:30)
[2021-01-09] MEDS: AZITHROMYCIN 500 MG in DEXT 5% WATER 250 ML IV SCH (19:10)
[2021-01-09 20:00] VITALS: BP 137/57
[2021-01-09] MEDS: FAMOTIDINE 20MG TABLET PO SCH (20:59)
[2021-01-09] MEDS: INSULIN GLARGINE UD 100 UNITS/ML SYR SUBCUT SCH (21:09)
[2021-01-09 22:00] VITALS: BP 140/38
[2021-01-10] MEDS: ENOXAPARIN 40MG/0.4ML SYR SUBCUT SCH ×2 (00:10→23:30)
[2021-01-10] MEDS: IPRATROPIUM/ALBUTEROL 0.5-3(2.5)MG/3ML NEB HHN SCH ×4 (01:45→21:45)
[2021-01-10] MEDS: LEVOTHYROXINE SODIUM 25MCG TABLET PO SCH (06:15)
[2021-01-10] MEDS: BLOOD SUGAR DIAGNOSTIC STRIP TEST SCH ×4 (06:15→20:38)
[2021-01-10] MEDS: INSULIN LISPRO 100 UNITS/ML SUBCUT SCH ×4 (06:16→22:34)
[2021-01-10] MEDS: HYDROCODONE/ACETAMINOPHEN 5/325MG TABLET PO PRN ×3 (06:16→14:29)
[2021-01-10 06:49] VITALS: BP 157/77
[2021-01-10 06:54] LABS: BASOPHILS % 0.6 % (0.0-2.0); EOSINOPHILS % 0.3 % (0.0-5.0); LYMPHOCYTES % 25.7 % (20.0-50.0); MEAN CORPUSCULAR HEMOGLOBIN 29.2 pg (28.0-32.0); MEAN CORPUSCULAR VOLUME 87.8 fL (81.0-99.0); MEAN PLATELET VOLUME 8.5 fl (7.4-10.4); MONOCYTES % 7.3 % (2.0-8.0); NEUTROPHILS % 66.1 % (40.0-76.0); PLATELET 358 x1000/uL (130-400); RED CELL DISTRIBUTION WIDTH 14.7 % (11.6-14.6)
[2021-01-10 06:59] LABS: CHLORIDE 106 mEq/L (98-107)
[2021-01-10 07:06] LABS: TOTAL IRON BINDING CAPACITY 226 ug/dL (250-450)
[2021-01-10 07:22] LABS: FOLIC ACID (FOLATE) SERUM 8.6 ng/mL (>5.38)
[2021-01-10 07:41] VITALS: BP 111/44
[2021-01-10] MEDS: GUAIFENESIN 600MG ER TABLET PO SCH ×2 (08:15→20:38)
[2021-01-10] MEDS: DULOXETINE HCL 30MG DR CAPSULE PO SCH (08:15)
[2021-01-10] MEDS: DEXAMETHASONE 4MG TABLET PO SCH (08:16)
[2021-01-10] MEDS: METOPROLOL TARTRATE 50MG TABLET PO SCH ×2 (08:16→20:38)
[2021-01-10] MEDS: DOCUSATE SODIUM 100MG CAPSULE PO PRN (08:20)
[2021-01-10] MEDS: LOSARTAN POTASSIUM 50 MG TABLET PO SCH (08:20)
[2021-01-10] MEDS: NIFEDIPINE XL 90MG TAB PO SCH (08:25)
[2021-01-10 08:26] VITALS: BP 147/42
[2021-01-10] MEDS: CLOTRIMAZOLE/BETAMETHASONE 1/0.05% CREAM 15GM TOP SCH ×2 (08:44→16:57)
[2021-01-10 09:31] VITALS: BP 140/44
[2021-01-10] MEDS: CLONIDINE 0.1MG TABLET PO SCH ×2 (09:35→16:57)
[2021-01-10] MEDS ORDERED: CYANOCOBALAMIN 1000MCG/ML VIAL IM NR (11:30)
[2021-01-10 16:51] VITALS: BP 154/53
[2021-01-10] MEDS: AZITHROMYCIN 500 MG in DEXT 5% WATER 250 ML IV SCH (17:12)
[2021-01-10 20:00] VITALS: BP 133/55
[2021-01-10] MEDS: FAMOTIDINE 20MG TABLET PO SCH (20:38)
[2021-01-10] MEDS: INSULIN GLARGINE UD 100 UNITS/ML SYR SUBCUT SCH (22:33)
[2021-01-11] MEDS: IPRATROPIUM/ALBUTEROL 0.5-3(2.5)MG/3ML NEB HHN SCH ×4 (01:26→20:16)
[2021-01-11] MEDS: LEVOTHYROXINE SODIUM 25MCG TABLET PO SCH (06:03)
[2021-01-11] MEDS: BLOOD SUGAR DIAGNOSTIC STRIP TEST SCH ×4 (06:04→21:32)
[2021-01-11] MEDS: INSULIN LISPRO 100 UNITS/ML SUBCUT SCH ×4 (06:04→21:41)
[2021-01-11] MEDS: HYDROCODONE/ACETAMINOPHEN 5/325MG TABLET PO PRN ×3 (06:45→16:41)
[2021-01-11 08:00] VITALS: BP 145/51
[2021-01-11] MEDS: METOPROLOL TARTRATE 50MG TABLET PO SCH ×2 (08:38→20:59)
[2021-01-11] MEDS: DEXAMETHASONE 4MG TABLET PO SCH (08:38)
[2021-01-11] MEDS: DULOXETINE HCL 30MG DR CAPSULE PO SCH (08:38)
[2021-01-11] MEDS: CLONIDINE 0.1MG TABLET PO SCH ×2 (08:38→16:42)
[2021-01-11] MEDS: LOSARTAN POTASSIUM 50 MG TABLET PO SCH (08:39)
[2021-01-11] MEDS: NIFEDIPINE XL 90MG TAB PO SCH (08:39)
[2021-01-11] MEDS: GUAIFENESIN 600MG ER TABLET PO SCH ×2 (08:42→21:33)
[2021-01-11] MEDS: CLOTRIMAZOLE/BETAMETHASONE 1/0.05% CREAM 15GM TOP SCH ×2 (08:42→16:57)
[2021-01-11 12:00] VITALS: BP 153/65
[2021-01-11 20:00] VITALS: BP 100/64
[2021-01-11] MEDS: ACETAMINOPHEN 325MG TABLET PO PRN (21:33)
[2021-01-11] MEDS: FAMOTIDINE 20MG TABLET PO SCH (21:33)
[2021-01-11] MEDS: ENOXAPARIN 40MG/0.4ML SYR SUBCUT SCH (21:34)
[2021-01-11] MEDS: INSULIN GLARGINE UD 100 UNITS/ML SYR SUBCUT SCH (21:42)
[2021-01-12] MEDS: HYDROCODONE/ACETAMINOPHEN 5/325MG TABLET PO PRN ×4 (04:51→20:33)
[2021-01-12] MEDS: LEVOTHYROXINE SODIUM 25MCG TABLET PO SCH (05:56)
[2021-01-12] MEDS: BLOOD SUGAR DIAGNOSTIC STRIP TEST SCH ×4 (05:56→21:00)
[2021-01-12] MEDS: INSULIN LISPRO 100 UNITS/ML SUBCUT SCH ×4 (05:56→22:47)
[2021-01-12 07:14] LABS: BASOPHILS % 0.2 % (0.0-2.0); EOSINOPHILS % 0.3 % (0.0-5.0); HEMATOCRIT. 35.4 % (36.0-48.0); HEMOGLOBIN. 11.9 g/dL (12.0-16.0); LYMPHOCYTES % 25.6 % (20.0-50.0); MEAN CORPUSCULAR HEMOGLOBIN 29.3 pg (28.0-32.0); MEAN CORPUSCULAR VOLUME 87.3 fL (81.0-99.0); MONOCYTES % 6.9 % (2.0-8.0); PLATELET 337 x1000/uL (130-400); RED BLOOD CELL COUNT 4.06 mill/uL (4.2-5.4); RED CELL DISTRIBUTION WIDTH 14.7 % (11.6-14.6)
[2021-01-12] MEDS: IPRATROPIUM/ALBUTEROL 0.5-3(2.5)MG/3ML NEB HHN SCH ×4 (07:34→20:44)
[2021-01-12 07:54] VITALS: BP 155/68
[2021-01-12] MEDS: CLONIDINE 0.1MG TABLET PO SCH ×2 (08:08→16:53)
[2021-01-12] MEDS: DULOXETINE HCL 30MG DR CAPSULE PO SCH (08:08)
[2021-01-12] MEDS: METOPROLOL TARTRATE 50MG TABLET PO SCH ×2 (08:08→22:39)
[2021-01-12] MEDS: DEXAMETHASONE 4MG TABLET PO SCH (08:09)
[2021-01-12] MEDS: GUAIFENESIN 600MG ER TABLET PO SCH ×2 (08:09→22:39)
[2021-01-12] MEDS: LOSARTAN POTASSIUM 50 MG TABLET PO SCH (08:09)
[2021-01-12] MEDS: NIFEDIPINE XL 90MG TAB PO SCH (08:09)
[2021-01-12] MEDS: CLOTRIMAZOLE/BETAMETHASONE 1/0.05% CREAM 15GM TOP SCH ×2 (08:10→16:53)
[2021-01-12] MEDS: METOLAZONE 2.5MG TABLET PO SCH (08:11)
[2021-01-12 14:09] VITALS: BP 153/60
[2021-01-12 16:26] VITALS: BP 144/43
[2021-01-12] MEDS: DOCUSATE SODIUM 100MG CAPSULE PO PRN (16:54)
[2021-01-12 20:00] VITALS: BP 147/52
[2021-01-12] MEDS: FAMOTIDINE 20MG TABLET PO SCH (22:39)
[2021-01-12] MEDS: ENOXAPARIN 40MG/0.4ML SYR SUBCUT SCH (22:40)
[2021-01-12] MEDS: INSULIN GLARGINE UD 100 UNITS/ML SYR SUBCUT SCH (22:48)
[2021-01-13] MEDS: IPRATROPIUM/ALBUTEROL 0.5-3(2.5)MG/3ML NEB HHN SCH ×4 (01:31→20:34)
[2021-01-13] MEDS: LEVOTHYROXINE SODIUM 25MCG TABLET PO SCH (06:25)
[2021-01-13] MEDS: HYDROCODONE/ACETAMINOPHEN 5/325MG TABLET PO PRN ×3 (06:28→20:41)
[2021-01-13] MEDS: BLOOD SUGAR DIAGNOSTIC STRIP TEST SCH ×4 (06:29→21:23)
[2021-01-13] MEDS: INSULIN LISPRO 100 UNITS/ML SUBCUT SCH ×4 (06:29→23:00)
[2021-01-13] MEDS: DEXAMETHASONE 4MG TABLET PO SCH (08:05)
[2021-01-13] MEDS: NIFEDIPINE XL 90MG TAB PO SCH (08:06)
[2021-01-13] MEDS: CLONIDINE 0.1MG TABLET PO SCH ×2 (08:06→17:15)
[2021-01-13] MEDS: METOPROLOL TARTRATE 50MG TABLET PO SCH ×2 (08:06→22:43)
[2021-01-13] MEDS: GUAIFENESIN 600MG ER TABLET PO SCH ×2 (08:07→22:42)
[2021-01-13] MEDS: DULOXETINE HCL 30MG DR CAPSULE PO SCH (08:07)
[2021-01-13] MEDS: ACETAMINOPHEN 325MG TABLET PO PRN (08:08)
[2021-01-13] MEDS: CLOTRIMAZOLE/BETAMETHASONE 1/0.05% CREAM 15GM TOP SCH ×2 (08:11→17:10)
[2021-01-13] MEDS: LOSARTAN POTASSIUM 50 MG TABLET PO SCH (08:11)
[2021-01-13 08:27] VITALS: BP 162/43
[2021-01-13 20:00] VITALS: BP 142/66
[2021-01-13] MEDS: FAMOTIDINE 20MG TABLET PO SCH (22:43)
[2021-01-13] MEDS: ENOXAPARIN 40MG/0.4ML SYR SUBCUT SCH (23:01)
[2021-01-13] MEDS: INSULIN GLARGINE UD 100 UNITS/ML SYR SUBCUT SCH (23:01)
[2021-01-14] MEDS: IPRATROPIUM/ALBUTEROL 0.5-3(2.5)MG/3ML NEB HHN SCH ×2 (01:12→21:22)
[2021-01-14] MEDS: BLOOD SUGAR DIAGNOSTIC STRIP TEST SCH ×4 (05:55→21:31)
[2021-01-14] MEDS: INSULIN LISPRO 100 UNITS/ML SUBCUT SCH ×4 (05:56→21:32)
[2021-01-14] MEDS: LEVOTHYROXINE SODIUM 25MCG TABLET PO SCH (05:58)
[2021-01-14] MEDS: HYDROCODONE/ACETAMINOPHEN 5/325MG TABLET PO PRN ×3 (05:58→21:32)
[2021-01-14 06:26] LABS: BASOPHILS % 0.6 % (0.0-2.0); EOSINOPHILS % 0.3 % (0.0-5.0); HEMATOCRIT. 38.1 % (36.0-48.0); HEMOGLOBIN. 12.6 g/dL (12.0-16.0); LYMPHOCYTES % 24.1 % (20.0-50.0); MEAN CORPUSCULAR HEMOGLOBIN 29.1 pg (28.0-32.0); MEAN CORPUSCULAR VOLUME 87.6 fL (81.0-99.0); MEAN PLATELET VOLUME 8.9 fl (7.4-10.4); MONOCYTES % 6.6 % (2.0-8.0); NEUTROPHILS % 68.4 % (40.0-76.0); PLATELET 292 x1000/uL (130-400); RED BLOOD CELL COUNT 4.34 mill/uL (4.2-5.4)
[2021-01-14 06:36] LABS: CHLORIDE 109 mEq/L (98-107)
[2021-01-14 06:51] LABS: PROTHROMBIN TIME 11.2 sec (9.6-11.0)
[2021-01-14 08:07] VITALS: BP 118/58
[2021-01-14] MEDS: CLOTRIMAZOLE/BETAMETHASONE 1/0.05% CREAM 15GM TOP SCH ×2 (09:32→16:59)
[2021-01-14] MEDS: NIFEDIPINE XL 90MG TAB PO SCH (09:32)
[2021-01-14] MEDS: DULOXETINE HCL 30MG DR CAPSULE PO SCH (09:33)
[2021-01-14] MEDS: CLONIDINE 0.1MG TABLET PO SCH ×2 (09:33→16:59)
[2021-01-14] MEDS: LOSARTAN POTASSIUM 50 MG TABLET PO SCH (09:33)
[2021-01-14] MEDS: METOPROLOL TARTRATE 50MG TABLET PO SCH ×2 (09:33→21:33)
[2021-01-14] MEDS: GUAIFENESIN 600MG ER TABLET PO SCH ×2 (09:33→21:32)
[2021-01-14] MEDS: DEXAMETHASONE 4MG TABLET PO SCH (09:33)
[2021-01-14 15:33] LABS: CLARITY URINE CLEAR (CLEAR); COLOR URINE YELLOW (YELLOW); KETONES URINE NEGATIVE (NEGATIVE); LEUKOCYTE ESTERASE URINE NEGATIVE (NEGATIVE); NITRITE URINE NEGATIVE (NEGATIVE); OCCULT BLOOD URINE NEGATIVE (NEGATIVE); PH URINE 6.5 (4.5-8.0); PROTEIN URINE TRACE (NEGATIVE); SPECIFIC GRAVITY URINE 1.012 (1.005-1.030); UROBILINOGEN URINE 0.2 E.U./dL (0.2-1.0)
[2021-01-14] MEDS ORDERED: LEVOFLOXACIN 500MG TABLET PO NR (17:30)
[2021-01-14 20:00] VITALS: BP 127/78
[2021-01-14] MEDS: BUDESONIDE 0.5MG/2ML NEB HHN SCH (21:22)
[2021-01-14] MEDS: INSULIN GLARGINE UD 100 UNITS/ML SYR SUBCUT SCH (21:31)
[2021-01-14] MEDS: FAMOTIDINE 20MG TABLET PO SCH (21:32)
[2021-01-14] MEDS: ENOXAPARIN 40MG/0.4ML SYR SUBCUT SCH (21:33)
[2021-01-15] MEDS: IPRATROPIUM/ALBUTEROL 0.5-3(2.5)MG/3ML NEB HHN SCH ×2 (02:06→13:51)
[2021-01-15] MEDS: HYDROCODONE/ACETAMINOPHEN 5/325MG TABLET PO PRN ×4 (04:42→22:51)
[2021-01-15] MEDS: BLOOD SUGAR DIAGNOSTIC STRIP TEST SCH ×4 (06:30→20:52)
[2021-01-15] MEDS: LEVOTHYROXINE SODIUM 25MCG TABLET PO SCH (06:30)
[2021-01-15 07:45] VITALS: BP 105/48
[2021-01-15] MEDS: INSULIN LISPRO 100 UNITS/ML SUBCUT SCH ×4 (09:00→21:12)
[2021-01-15] MEDS: CLOTRIMAZOLE/BETAMETHASONE 1/0.05% CREAM 15GM TOP SCH ×2 (09:23→17:19)
[2021-01-15] MEDS: GUAIFENESIN 600MG ER TABLET PO SCH ×2 (09:23→21:00)
[2021-01-15] MEDS: DULOXETINE HCL 30MG DR CAPSULE PO SCH (09:23)
[2021-01-15] MEDS: CLONIDINE 0.1MG TABLET PO SCH ×2 (09:27→17:06)
[2021-01-15] MEDS: METOPROLOL TARTRATE 50MG TABLET PO SCH ×2 (09:27→21:00)
[2021-01-15] MEDS: NIFEDIPINE XL 90MG TAB PO SCH (09:28)
[2021-01-15] MEDS: METOLAZONE 2.5MG TABLET PO SCH (09:46)
[2021-01-15] MEDS: LEVOFLOXACIN 250MG TABLET PO SCH (10:59)
[2021-01-15 11:36] LABS: BASOPHILS % 0.4 % (0.0-2.0); EOSINOPHILS % 0.4 % (0.0-5.0); HEMATOCRIT. 37.1 % (36.0-48.0); HEMOGLOBIN. 12.7 g/dL (12.0-16.0); LYMPHOCYTES % 18.1 % (20.0-50.0); MEAN CORPUSCULAR HEMOGLOBIN 29.8 pg (28.0-32.0); MEAN CORPUSCULAR VOLUME 87.3 fL (81.0-99.0); MEAN PLATELET VOLUME 8.7 fl (7.4-10.4); MONOCYTES % 8.4 % (2.0-8.0); NEUTROPHILS % 72.7 % (40.0-76.0); PLATELET 287 x1000/uL (130-400); RED BLOOD CELL COUNT 4.25 mill/uL (4.2-5.4); RED CELL DISTRIBUTION WIDTH 15.3 % (11.6-14.6)
[2021-01-15] MEDS ORDERED: LORAZEPAM 0.5MG TABLET PO PRN (12:45)
[2021-01-15] MEDS: BUDESONIDE 0.5MG/2ML NEB HHN SCH (13:52)
[2021-01-15 20:00] VITALS: BP 146/65
[2021-01-15] MEDS: ENOXAPARIN 40MG/0.4ML SYR SUBCUT SCH (20:59)
[2021-01-15] MEDS: FAMOTIDINE 20MG TABLET PO SCH (21:00)
[2021-01-15] MEDS: INSULIN GLARGINE UD 100 UNITS/ML SYR SUBCUT SCH (21:01)
[2021-01-16] MEDS: IPRATROPIUM/ALBUTEROL 0.5-3(2.5)MG/3ML NEB HHN SCH ×3 (01:07→12:05)
[2021-01-16] MEDS: BUDESONIDE 0.5MG/2ML NEB HHN SCH ×2 (01:07→08:47)
[2021-01-16 05:24] LABS: HEMATOCRIT 37.8 % (36.0-48.0); HEMOGLOBIN 12.5 g/dL (12.0-16.0); MEAN CORPUSCULAR HEMOGLOBIN 28.9 pg (28.0-32.0); MEAN CORPUSCULAR VOLUME 87.7 fL (81.0-99.0); PLATELET 267 x1000/uL (130-400); RED BLOOD CELL COUNT 4.31 mill/uL (4.2-5.4); RED CELL DISTRIBUTION WIDTH 14.9 % (11.6-14.6)
[2021-01-16] MEDS: LEVOTHYROXINE SODIUM 25MCG TABLET PO SCH (06:37)
[2021-01-16] MEDS: BLOOD SUGAR DIAGNOSTIC STRIP TEST SCH ×2 (06:37→11:47)
[2021-01-16] MEDS: HYDROCODONE/ACETAMINOPHEN 5/325MG TABLET PO PRN (06:38)
[2021-01-16 08:00] VITALS: BP 130/48
[2021-01-16 08:21] VITALS: BP 130/48
[2021-01-16] MEDS: INSULIN LISPRO 100 UNITS/ML SUBCUT SCH ×2 (09:00→12:46)
[2021-01-16] MEDS: CLOTRIMAZOLE/BETAMETHASONE 1/0.05% CREAM 15GM TOP SCH ×2 (09:00→09:04)
[2021-01-16] MEDS: CLONIDINE 0.1MG TABLET PO SCH (09:01)
[2021-01-16] MEDS: NIFEDIPINE XL 90MG TAB PO SCH (09:01)
[2021-01-16] MEDS: METOPROLOL TARTRATE 50MG TABLET PO SCH (09:02)
[2021-01-16] MEDS: GUAIFENESIN 600MG ER TABLET PO SCH (09:02)
[2021-01-16] MEDS: DULOXETINE HCL 30MG DR CAPSULE PO SCH (09:02)
[2021-01-16] MEDS: LEVOFLOXACIN 250MG TABLET PO SCH (11:28)
[2021-01-16 12:06] VITALS: BP 134/48
[2021-01-16] MEDS ORDERED: HYDR-4001 MT (12:18)
[2021-01-16] MEDS ORDERED: LEVO250T58 MT (12:18)
[2021-01-16] MEDS ORDERED: INSU100I28 SQ (12:18)
[2021-01-16] MEDS ORDERED: METO2.5T2 MT (12:18)
[2021-01-16] MEDS ORDERED: METO-539 MT (12:18)
[2021-01-16] MEDS ORDERED: DULO60CA44 PO (12:18)
[2021-01-16] MEDS ORDERED: FAMO-135 PO (12:18)
[2021-01-16] MEDS ORDERED: CLON0.1T MT (12:18)
[2021-01-16] MEDS ORDERED: ALBU90AE INH (12:18)
[2021-01-16] MEDS ORDERED: LEVO25TA2 MT (12:18)
[2021-01-16] MEDS ORDERED: NIFE90TA2 MT (12:18)
[2021-01-16 17:06] LABS: 25-HYDROXY VITAMIN D3 28 ng/mL (.)
== END 2021-01-16 14:05 | disposition home health service (06) | DRG 551 ==
PROVIDERS: ADMIT Physical Medicine & Rehabilitation Spinal Cord Injury Medicine; ATTEND Internal Medicine
DX: M48.02 Spinal stenosis, cervical region (principal); G82.50 Quadriplegia, unspecified; G93.40 Encephalopathy, unspecified; L97.909 Non-pressure chronic ulcer of unspecified part of unspecified lower leg with unspecified severity; N17.9 Acute kidney failure, unspecified; N39.0 Urinary tract infection, site not specified; F33.1 Major depressive disorder, recurrent, moderate; L03.119 Cellulitis of unspecified part of limb; M48.54XA Collapsed vertebra, not elsewhere classified, thoracic region, initial encounter for fracture; Z68.41 Body mass index [BMI] 40.0-44.9, adult; B96.5 Pseudomonas (aeruginosa) (mallei) (pseudomallei) as the cause of diseases classified elsewhere; D64.9 Anemia, unspecified; E03.9 Hypothyroidism, unspecified; E11.9 Type 2 diabetes mellitus without complications; E66.01 Morbid (severe) obesity due to excess calories; E78.5 Hyperlipidemia, unspecified; G89.29 Other chronic pain; I10 Essential (primary) hypertension; J45.909 Unspecified asthma, uncomplicated; M48.061 Spinal stenosis, lumbar region without neurogenic claudication; M54.10 Radiculopathy, site unspecified; R13.10 Dysphagia, unspecified; F09 Unspecified mental disorder due to known physiological condition; R26.89 Other abnormalities of gait and mobility; R53.81 Other malaise; R79.89 Other specified abnormal findings of blood chemistry; R53.1 Weakness; R82.4 Acetonuria; M47.816 Spondylosis without myelopathy or radiculopathy, lumbar region; J06.9 Acute upper respiratory infection, unspecified; M19.90 Unspecified osteoarthritis, unspecified site; M75.00 Adhesive capsulitis of unspecified shoulder; Z79.02 Long term (current) use of antithrombotics/antiplatelets; Z79.4 Long term (current) use of insulin; Z79.890 Hormone replacement therapy; Z79.899 Other long term (current) drug therapy; Z87.440 Personal history of urinary (tract) infections
CPT/HCPCS: 36415; 71045; 71046; 73030; 80048; 80053; 81003; 82306; 82607; 82728; 82746; 82962; 83540; 83550; 84134; 84443; 85025; 85027; 87077; 87186; 92523; 92610; 93970; 94640; 97110; 97116; 97162; 97166; 97530; 97535; C1893; J0456; J1650; J1815; J3420; J7060; J7626; J8540

== ENCOUNTER 2021-01-23 22:29 | Inpatient (IN) | payer MEDICARE, MEDICAID ==
[~2021-01-23] VITALS: Ht 149.9 cm; Wt 99.3 kg
[2021-01-23 21:40] VITALS: BP 130/56
[~2021-01-23 22:29] MED LIST changes: +ALBU90AE INH; +CLON0.1T MT; -CLON0.1T PO; +DULO60CA44 PO; +FAMO-135 PO; +HYDR-4001 MT; +INSU100I28 SQ; +LEVO250T58 MT; +LEVO25TA2 MT; -LEVO25TA7 MT; -LOSA50TA41 MT; +METO-539 MT; -METO-539 PO; +METO2.5T2 MT; +NIFE90TA2 MT; -NIFE90TA2 PO; -PANT40TA51 PO; +SODIUM BICARBONATE 650 MG TABLET PO SCH
[2021-01-23] MEDS ORDERED: DEXTROSE 50% WATER 50ML SYRINGE IV PRN (22:45)
[2021-01-23] MEDS ORDERED: LEVOTHYROXINE SODIUM 25MCG TABLET PO SCH (22:45)
[2021-01-23] MEDS ORDERED: LORAZEPAM 2MG/ML CPJ IV PRN (22:45)
[2021-01-23] MEDS ORDERED: IPRATROPIUM/ALBUTEROL 0.5-3(2.5)MG/3ML NEB HHN PRN (22:45)
[2021-01-23] MEDS ORDERED: ENOXAPARIN 40MG/0.4ML SYR SUBCUT ONE (22:45)
[2021-01-23] MEDS ORDERED: NALOXONE HCL 0.4 MG/ML 1ML VIAL IV PRN (22:45)
[2021-01-24] MEDS ORDERED: DULOXETINE HCL 60MG DR CAPSULE PO SCH
[2021-01-24] MEDS: SODIUM CHLORIDE 0.9% 1,000 ML IV SCH ×3 (00:16→17:28)
[2021-01-24] MEDS: PIPERACILLIN/TAZOBACTAM 2.25 G in DEXTROSE 5% WATER 50 ML IV SCH ×2 (00:16→06:29)
[2021-01-24] MEDS: SODIUM BICARBONATE 650 MG TABLET PO SCH ×3 (00:16→17:24)
[2021-01-24] MEDS: IPRATROPIUM/ALBUTEROL 0.5-3(2.5)MG/3ML NEB HHN SCH ×4 (02:30→21:33)
[2021-01-24] MEDS: VANCOMYCIN 1 G PREMIX 200 ML IV SCH (05:08)
[2021-01-24] MEDS ORDERED: SODIUM BICARBONATE 650 MG TABLET PO SCH (06:00)
[2021-01-24] MEDS: LEVOTHYROXINE SODIUM 25MCG TABLET PO SCH (06:29)
[2021-01-24] MEDS: BLOOD SUGAR DIAGNOSTIC STRIP TEST SCH ×4 (06:29→21:00)
[2021-01-24 06:32] LABS: BASOPHILS % 0.4 % (0.0-2.0); EOSINOPHILS % 1.8 % (0.0-5.0); HEMATOCRIT. 34.1 % (36.0-48.0); LYMPHOCYTES % 10.2 % (20.0-50.0); MEAN CORPUSCULAR HEMOGLOBIN 28.3 pg (28.0-32.0); MEAN CORPUSCULAR VOLUME 88.1 fL (81.0-99.0); MONOCYTES % 7.4 % (2.0-8.0); NEUTROPHILS % 80.2 % (40.0-76.0); PLATELET 233 x1000/uL (130-400); RED BLOOD CELL COUNT 3.87 mill/uL (4.2-5.4); RED CELL DISTRIBUTION WIDTH 15.6 % (11.6-14.6)
[2021-01-24 06:40] LABS: CHLORIDE 113 mEq/L (98-107)
[2021-01-24 07:38] VITALS: BP 152/57
[2021-01-24] MEDS: HYDROCODONE/ACETAMINOPHEN 5/325MG TABLET PO PRN ×3 (08:19→19:50)
[2021-01-24] MEDS: DULOXETINE HCL 60MG DR CAPSULE PO SCH (08:19)
[2021-01-24] MEDS: INSULIN LISPRO 100 UNITS/ML SUBCUT SCH ×4 (08:23→21:59)
[2021-01-24] MEDS: ENOXAPARIN 40MG/0.4ML SYR SUBCUT SCH (08:26)
[2021-01-24] MEDS: PIPERACILLIN/TAZOBACTAM 3.375G in DEXT 5% WATER 50ML IV SCH ×2 (14:53→21:59)
[2021-01-24] MEDS: BISACODYL 5MG TABLET PO PRN (18:43)
[2021-01-24 20:00] VITALS: BP 170/62
[2021-01-24] MEDS ORDERED: FURO-151 PO (20:28)
[2021-01-24] MEDS ORDERED: LOSA50TA41 PO (20:28)
[2021-01-24] MEDS ORDERED: METO2.5T2 PO (20:28)
[2021-01-24] MEDS ORDERED: LOSARTAN POTASSIUM 50 MG TABLET PO SCH (21:00)
[2021-01-25] MEDS: VANCOMYCIN 1 G PREMIX 200 ML IV SCH (00:07)
[2021-01-25] MEDS: SODIUM BICARBONATE 650 MG TABLET PO SCH ×3 (00:07→16:26)
[2021-01-25] MEDS: IPRATROPIUM/ALBUTEROL 0.5-3(2.5)MG/3ML NEB HHN SCH ×4 (02:09→21:16)
[2021-01-25] MEDS: PIPERACILLIN/TAZOBACTAM 3.375G in DEXT 5% WATER 50ML IV SCH ×4 (03:06→21:15)
[2021-01-25] MEDS: SODIUM CHLORIDE 0.9% 1,000 ML IV SCH ×2 (05:05→14:58)
[2021-01-25] MEDS: LEVOTHYROXINE SODIUM 25MCG TABLET PO SCH (06:10)
[2021-01-25] MEDS: BLOOD SUGAR DIAGNOSTIC STRIP TEST SCH ×4 (06:10→20:22)
[2021-01-25] MEDS: INSULIN LISPRO 100 UNITS/ML SUBCUT SCH ×4 (06:17→21:16)
[2021-01-25 06:32] LABS: BASOPHILS % 0.4 % (0.0-2.0); EOSINOPHILS % 2.6 % (0.0-5.0); HEMATOCRIT. 32.5 % (36.0-48.0); HEMOGLOBIN. 11.1 g/dL (12.0-16.0); LYMPHOCYTES % 14.1 % (20.0-50.0); MEAN CORPUSCULAR HEMOGLOBIN 29.8 pg (28.0-32.0); MEAN PLATELET VOLUME 7.7 fl (7.4-10.4); NEUTROPHILS % 75.9 % (40.0-76.0); PLATELET 204 x1000/uL (130-400); RED BLOOD CELL COUNT 3.74 mill/uL (4.2-5.4); RED CELL DISTRIBUTION WIDTH 15.8 % (11.6-14.6)
[2021-01-25 06:53] LABS: CHLORIDE 108 mEq/L (98-107)
[2021-01-25 07:02] LABS: TOTAL IRON BINDING CAPACITY 165 ug/dL (250-450)
[2021-01-25] MEDS ORDERED: FUROSEMIDE 40MG TABLET PO SCH (07:15)
[2021-01-25 07:41] VITALS: BP 146/50
[2021-01-25 08:20] LABS: FOLIC ACID (FOLATE) SERUM 8.2 ng/mL (>5.38)
[2021-01-25] MEDS: DULOXETINE HCL 60MG DR CAPSULE PO SCH (08:42)
[2021-01-25] MEDS: ENOXAPARIN 40MG/0.4ML SYR SUBCUT SCH (08:43)
[2021-01-25] MEDS ORDERED: POTASSIUM CHLORIDE 20MEQ TABLET SR PO NR (10:30)
[2021-01-25] MEDS ORDERED: NA PHOS,M-B/NA PHOS,DI-BA ENEMA 118ML PR PRN (10:30)
[2021-01-25] MEDS: HYDROCODONE/ACETAMINOPHEN 5/325MG TABLET PO PRN (11:25)
[2021-01-25] MEDS: CLONIDINE 0.1MG TABLET PO PRN (11:57)
[2021-01-25] MEDS ORDERED: HYDRALAZINE HCL 25MG TABLET PO ONE (14:15)
[2021-01-25] MEDS: HYDRALAZINE HCL 25MG TABLET PO SCH ×2 (14:39→21:14)
[2021-01-25] MEDS: AMLODIPINE 10MG TABLET PO SCH (14:39)
[2021-01-25 15:46] LABS: CLARITY URINE CLEAR (CLEAR); COLOR URINE YELLOW (YELLOW); KETONES URINE NEGATIVE (NEGATIVE); LEUKOCYTE ESTERASE URINE NEGATIVE (NEGATIVE); NITRITE URINE NEGATIVE (NEGATIVE); OCCULT BLOOD URINE NEGATIVE (NEGATIVE); PROTEIN URINE 2+ (NEGATIVE); SPECIFIC GRAVITY URINE 1.012 (1.005-1.030); UROBILINOGEN URINE 0.2 E.U./dL (0.2-1.0)
[2021-01-25 20:00] VITALS: BP 175/62
[2021-01-25] MEDS: VANCOMYCIN 750 MG PREMIX 150 ML IV SCH (23:10)
[2021-01-26] MEDS: HYDROCODONE/ACETAMINOPHEN 5/325MG TABLET PO PRN ×4 (00:05→19:06)
[2021-01-26] MEDS: SODIUM BICARBONATE 650 MG TABLET PO SCH ×3 (00:43→16:06)
[2021-01-26] MEDS: SODIUM CHLORIDE 0.9% 1,000 ML IV SCH ×3 (00:43→21:21)
[2021-01-26] MEDS: IPRATROPIUM/ALBUTEROL 0.5-3(2.5)MG/3ML NEB HHN SCH ×4 (01:35→21:18)
[2021-01-26] MEDS: PIPERACILLIN/TAZOBACTAM 3.375G in DEXT 5% WATER 50ML IV SCH ×4 (03:54→21:21)
[2021-01-26 06:50] LABS: BASOPHILS % 0.3 % (0.0-2.0); EOSINOPHILS % 2.6 % (0.0-5.0); HEMATOCRIT. 31.2 % (36.0-48.0); HEMOGLOBIN. 10.6 g/dL (12.0-16.0); LYMPHOCYTES % 13.5 % (20.0-50.0); MEAN CORPUSCULAR HEMOGLOBIN 29.6 pg (28.0-32.0); MEAN CORPUSCULAR VOLUME 86.6 fL (81.0-99.0); MEAN PLATELET VOLUME 7.6 fl (7.4-10.4); MONOCYTES % 5.9 % (2.0-8.0); NEUTROPHILS % 77.7 % (40.0-76.0); PLATELET 197 x1000/uL (130-400); RED CELL DISTRIBUTION WIDTH 15.8 % (11.6-14.6)
[2021-01-26] MEDS: LEVOTHYROXINE SODIUM 25MCG TABLET PO SCH (06:50)
[2021-01-26] MEDS: BLOOD SUGAR DIAGNOSTIC STRIP TEST SCH ×4 (06:50→21:20)
[2021-01-26] MEDS: HYDRALAZINE HCL 25MG TABLET PO SCH ×3 (06:51→21:18)
[2021-01-26] MEDS: INSULIN LISPRO 100 UNITS/ML SUBCUT SCH ×4 (06:53→21:25)
[2021-01-26 07:09] LABS: CHLORIDE 109 mEq/L (98-107)
[2021-01-26 08:00] VITALS: BP 183/71
[2021-01-26] MEDS ORDERED: METOLAZONE 2.5MG TABLET PO SCH (09:00)
[2021-01-26] MEDS: DULOXETINE HCL 60MG DR CAPSULE PO SCH (09:08)
[2021-01-26] MEDS: AMLODIPINE 10MG TABLET PO SCH (09:08)
[2021-01-26] MEDS: CLONIDINE 0.1MG TABLET PO PRN (09:08)
[2021-01-26] MEDS: ENOXAPARIN 40MG/0.4ML SYR SUBCUT SCH (09:08)
[2021-01-26] MEDS ORDERED: POTASSIUM CHLORIDE 20MEQ TABLET SR PO NR (10:30)
[2021-01-26] MEDS: VANCOMYCIN 750 MG PREMIX 150 ML IV SCH (16:07)
[2021-01-26 20:00] VITALS: BP 143/91
[2021-01-27] MEDS: SODIUM BICARBONATE 650 MG TABLET PO SCH ×3 (00:37→16:15)
[2021-01-27] MEDS: IPRATROPIUM/ALBUTEROL 0.5-3(2.5)MG/3ML NEB HHN SCH ×4 (01:09→20:32)
[2021-01-27] MEDS: PIPERACILLIN/TAZOBACTAM 3.375G in DEXT 5% WATER 50ML IV SCH ×2 (02:46→10:06)
[2021-01-27] MEDS: HYDRALAZINE HCL 25MG TABLET PO SCH ×3 (06:34→21:52)
[2021-01-27] MEDS: LEVOTHYROXINE SODIUM 25MCG TABLET PO SCH (06:34)
[2021-01-27] MEDS: SODIUM CHLORIDE 0.9% 1,000 ML IV SCH (06:35)
[2021-01-27] MEDS: BLOOD SUGAR DIAGNOSTIC STRIP TEST SCH ×4 (06:35→21:52)
[2021-01-27 06:41] LABS: CHLORIDE 109 mEq/L (98-107)
[2021-01-27 06:50] LABS: BASOPHILS % 0.7 % (0.0-2.0); EOSINOPHILS % 4.5 % (0.0-5.0); HEMATOCRIT. 31.8 % (36.0-48.0); HEMOGLOBIN. 10.5 g/dL (12.0-16.0); LYMPHOCYTES % 16.3 % (20.0-50.0); MEAN CORPUSCULAR VOLUME 87.6 fL (81.0-99.0); MONOCYTES % 6.5 % (2.0-8.0); PLATELET 170 x1000/uL (130-400); RED BLOOD CELL COUNT 3.62 mill/uL (4.2-5.4); RED CELL DISTRIBUTION WIDTH 16.3 % (11.6-14.6)
[2021-01-27] MEDS: HYDROCODONE/ACETAMINOPHEN 5/325MG TABLET PO PRN ×2 (06:55→11:16)
[2021-01-27] MEDS: INSULIN LISPRO 100 UNITS/ML SUBCUT SCH ×4 (06:59→22:08)
[2021-01-27 08:00] VITALS: BP 137/50
[2021-01-27] MEDS: ENOXAPARIN 40MG/0.4ML SYR SUBCUT SCH (10:07)
[2021-01-27] MEDS: AMLODIPINE 10MG TABLET PO SCH (10:08)
[2021-01-27] MEDS: DULOXETINE HCL 60MG DR CAPSULE PO SCH (10:08)
[2021-01-27] MEDS: VANCOMYCIN 750 MG PREMIX 150 ML IV SCH (12:17)
[2021-01-27] MEDS: LIDOCAINE 5% PATCH TOP SCH (15:03)
[2021-01-27 20:00] VITALS: BP 151/93
[2021-01-28] MEDS: SODIUM BICARBONATE 650 MG TABLET PO SCH ×3 (00:15→16:18)
[2021-01-28] MEDS: IPRATROPIUM/ALBUTEROL 0.5-3(2.5)MG/3ML NEB HHN SCH ×4 (01:14→22:14)
[2021-01-28] MEDS: BLOOD SUGAR DIAGNOSTIC STRIP TEST SCH ×4 (06:07→21:06)
[2021-01-28] MEDS: LEVOTHYROXINE SODIUM 25MCG TABLET PO SCH (06:07)
[2021-01-28] MEDS: HYDRALAZINE HCL 25MG TABLET PO SCH ×3 (06:11→21:02)
[2021-01-28 06:20] LABS: CHLORIDE 109 mEq/L (98-107)
[2021-01-28 06:22] LABS: BASOPHILS % 0.5 % (0.0-2.0); EOSINOPHILS % 2.7 % (0.0-5.0); HEMATOCRIT. 32.9 % (36.0-48.0); HEMOGLOBIN. 11.2 g/dL (12.0-16.0); LYMPHOCYTES % 14.6 % (20.0-50.0); MEAN CORPUSCULAR HEMOGLOBIN 29.7 pg (28.0-32.0); MEAN CORPUSCULAR VOLUME 87.4 fL (81.0-99.0); MEAN PLATELET VOLUME 8.1 fl (7.4-10.4); MONOCYTES % 6.8 % (2.0-8.0); NEUTROPHILS % 75.4 % (40.0-76.0); PLATELET 203 x1000/uL (130-400); RED BLOOD CELL COUNT 3.77 mill/uL (4.2-5.4); RED CELL DISTRIBUTION WIDTH 16.2 % (11.6-14.6)
[2021-01-28 06:25] LABS: INR 1.1; PROTHROMBIN TIME 11.3 sec (9.6-11.0)
[2021-01-28 08:00] VITALS: BP 136/62
[2021-01-28] MEDS: DULOXETINE HCL 60MG DR CAPSULE PO SCH (08:51)
[2021-01-28] MEDS: AMLODIPINE 10MG TABLET PO SCH (08:51)
[2021-01-28] MEDS: ENOXAPARIN 40MG/0.4ML SYR SUBCUT SCH (08:51)
[2021-01-28] MEDS: LIDOCAINE 5% PATCH TOP SCH (08:53)
[2021-01-28] MEDS: HYDROCODONE/ACETAMINOPHEN 5/325MG TABLET PO PRN ×2 (08:53→14:08)
[2021-01-28] MEDS ORDERED: POTASSIUM CHLORIDE 20MEQ TABLET SR PO NR (11:00)
[2021-01-28] MEDS: ACETAMINOPHEN 325MG TABLET PO PRN (12:25)
[2021-01-28] MEDS: INSULIN LISPRO 100 UNITS/ML SUBCUT SCH ×3 (12:37→21:10)
[2021-01-28 20:00] VITALS: BP 138/96
[2021-01-28] MEDS: HYDROCODONE/APAP 7.5/325MG 1 TAB TABLET PO PRN (21:06)
[2021-01-29] MEDS: SODIUM BICARBONATE 650 MG TABLET PO SCH ×3 (00:52→15:51)
[2021-01-29] MEDS: LEVOTHYROXINE SODIUM 25MCG TABLET PO SCH (06:25)
[2021-01-29] MEDS: HYDRALAZINE HCL 25MG TABLET PO SCH ×3 (06:25→21:08)
[2021-01-29] MEDS: HYDROCODONE/APAP 7.5/325MG 1 TAB TABLET PO PRN ×3 (06:26→21:10)
[2021-01-29] MEDS: BLOOD SUGAR DIAGNOSTIC STRIP TEST SCH ×4 (06:26→21:10)
[2021-01-29] MEDS: INSULIN LISPRO 100 UNITS/ML SUBCUT SCH ×4 (06:44→21:00)
[2021-01-29 07:24] LABS: BASOPHILS % 0.4 % (0.0-2.0); EOSINOPHILS % 3.4 % (0.0-5.0); HEMATOCRIT. 31.2 % (36.0-48.0); HEMOGLOBIN. 10.5 g/dL (12.0-16.0); LYMPHOCYTES % 16.7 % (20.0-50.0); MEAN CORPUSCULAR HEMOGLOBIN 29.4 pg (28.0-32.0); MEAN CORPUSCULAR VOLUME 87.8 fL (81.0-99.0); MEAN PLATELET VOLUME 8.7 fl (7.4-10.4); MONOCYTES % 7.1 % (2.0-8.0); NEUTROPHILS % 72.4 % (40.0-76.0); PLATELET 200 x1000/uL (130-400); RED BLOOD CELL COUNT 3.56 mill/uL (4.2-5.4); RED CELL DISTRIBUTION WIDTH 16.1 % (11.6-14.6)
[2021-01-29 07:29] VITALS: BP 136/76
[2021-01-29] MEDS: DULOXETINE HCL 60MG DR CAPSULE PO SCH (09:10)
[2021-01-29] MEDS: LIDOCAINE 5% PATCH TOP SCH (09:11)
[2021-01-29] MEDS: ENOXAPARIN 40MG/0.4ML SYR SUBCUT SCH (09:12)
[2021-01-29] MEDS: AMLODIPINE 10MG TABLET PO SCH (09:12)
[2021-01-29] MEDS: ACETAMINOPHEN 325MG TABLET PO PRN (11:15)
[2021-01-29] MEDS: ONDANSETRON HCL 4MG/2ML INJ IV PRN (12:20)
[2021-01-29] MEDS: IPRATROPIUM/ALBUTEROL 0.5-3(2.5)MG/3ML NEB HHN SCH ×2 (17:16→21:46)
[2021-01-29] MEDS: ERGOCALCIFEROL 50000UNITS CAPSULE PO SCH (18:17)
[2021-01-29 20:00] VITALS: BP 150/54
[2021-01-30] MEDS: SODIUM BICARBONATE 650 MG TABLET PO SCH ×3 (01:28→15:25)
[2021-01-30] MEDS: IPRATROPIUM/ALBUTEROL 0.5-3(2.5)MG/3ML NEB HHN SCH ×4 (02:39→21:04)
[2021-01-30] MEDS: LEVOTHYROXINE SODIUM 25MCG TABLET PO SCH (06:26)
[2021-01-30] MEDS: HYDROCODONE/APAP 7.5/325MG 1 TAB TABLET PO PRN ×3 (06:27→18:12)
[2021-01-30] MEDS: HYDRALAZINE HCL 25MG TABLET PO SCH ×3 (06:28→21:20)
[2021-01-30] MEDS: BLOOD SUGAR DIAGNOSTIC STRIP TEST SCH ×4 (06:32→21:20)
[2021-01-30] MEDS: INSULIN LISPRO 100 UNITS/ML SUBCUT SCH ×4 (06:32→21:00)
[2021-01-30] MEDS: DULOXETINE HCL 60MG DR CAPSULE PO SCH (08:09)
[2021-01-30] MEDS: AMLODIPINE 10MG TABLET PO SCH (08:09)
[2021-01-30] MEDS: ENOXAPARIN 40MG/0.4ML SYR SUBCUT SCH (08:10)
[2021-01-30] MEDS: LIDOCAINE 5% PATCH TOP SCH (08:11)
[2021-01-30 08:24] VITALS: BP 137/40
[2021-01-30] MEDS: ACETAMINOPHEN 325MG TABLET PO PRN (09:14)
[2021-01-30] MEDS: CLONIDINE 0.1MG TABLET PO PRN (09:14)
[2021-01-30 11:29] VITALS: BP 133/46
[2021-01-30] MEDS ORDERED: THROAT LOZENGES-BENZOCAINE/MENTH/CETYLPYRD CL LOZENGES MM PRN (12:15)
[2021-01-30 14:08] LABS: 25-HYDROXY VITAMIN D3 19 ng/mL (.)
[2021-01-30] MEDS: ACETAMINOPHEN 500MG TABLET PO SCH ×2 (15:25→21:20)
[2021-01-30 20:00] VITALS: BP 134/52
[2021-01-31] MEDS: SODIUM BICARBONATE 650 MG TABLET PO SCH ×3 (00:48→16:50)
[2021-01-31] MEDS: ACETAMINOPHEN 500MG TABLET PO SCH ×5 (02:30→23:15)
[2021-01-31] MEDS: IPRATROPIUM/ALBUTEROL 0.5-3(2.5)MG/3ML NEB HHN SCH ×4 (02:33→20:01)
[2021-01-31] MEDS: HYDRALAZINE HCL 25MG TABLET PO SCH ×4 (06:00→22:15)
[2021-01-31] MEDS: BLOOD SUGAR DIAGNOSTIC STRIP TEST SCH ×4 (06:26→21:00)
[2021-01-31] MEDS: LEVOTHYROXINE SODIUM 25MCG TABLET PO SCH (06:26)
[2021-01-31] MEDS: HYDROCODONE/APAP 7.5/325MG 1 TAB TABLET PO PRN ×3 (06:26→14:40)
[2021-01-31 08:20] VITALS: BP 94/109
[2021-01-31] MEDS: INSULIN LISPRO 100 UNITS/ML SUBCUT SCH ×4 (09:00→22:18)
[2021-01-31] MEDS: ENOXAPARIN 40MG/0.4ML SYR SUBCUT SCH (09:01)
[2021-01-31] MEDS: DULOXETINE HCL 60MG DR CAPSULE PO SCH (09:01)
[2021-01-31] MEDS: AMLODIPINE 10MG TABLET PO SCH (09:01)
[2021-01-31] MEDS: LIDOCAINE 5% PATCH TOP SCH (09:02)
[2021-01-31 20:00] VITALS: BP 125/49
[2021-02-01] MEDS: SODIUM BICARBONATE 650 MG TABLET PO SCH ×4 (00:29→23:56)
[2021-02-01] MEDS: IPRATROPIUM/ALBUTEROL 0.5-3(2.5)MG/3ML NEB HHN SCH ×4 (01:27→21:14)
[2021-02-01] MEDS: ACETAMINOPHEN 500MG TABLET PO SCH ×3 (02:30→14:49)
[2021-02-01] MEDS: LEVOTHYROXINE SODIUM 25MCG TABLET PO SCH (05:54)
[2021-02-01] MEDS: BLOOD SUGAR DIAGNOSTIC STRIP TEST SCH ×4 (05:54→21:00)
[2021-02-01] MEDS: HYDRALAZINE HCL 25MG TABLET PO SCH ×3 (06:09→22:00)
[2021-02-01] MEDS: INSULIN LISPRO 100 UNITS/ML SUBCUT SCH ×4 (06:40→23:22)
[2021-02-01 07:00] LABS: CHLORIDE 108 mEq/L (98-107)
[2021-02-01 07:01] LABS: BASOPHILS % 0.7 % (0.0-2.0); EOSINOPHILS % 2.6 % (0.0-5.0); HEMATOCRIT. 30.8 % (36.0-48.0); HEMOGLOBIN. 10.3 g/dL (12.0-16.0); LYMPHOCYTES % 16.5 % (20.0-50.0); MEAN CORPUSCULAR HEMOGLOBIN 29.6 pg (28.0-32.0); MEAN CORPUSCULAR VOLUME 88.7 fL (81.0-99.0); MEAN PLATELET VOLUME 8.4 fl (7.4-10.4); MONOCYTES % 7.2 % (2.0-8.0); PLATELET 284 x1000/uL (130-400); RED BLOOD CELL COUNT 3.47 mill/uL (4.2-5.4); RED CELL DISTRIBUTION WIDTH 16.6 % (11.6-14.6)
[2021-02-01 08:27] VITALS: BP 114/69
[2021-02-01] MEDS: DULOXETINE HCL 60MG DR CAPSULE PO SCH (09:10)
[2021-02-01] MEDS: AMLODIPINE 10MG TABLET PO SCH (09:11)
[2021-02-01] MEDS: ENOXAPARIN 40MG/0.4ML SYR SUBCUT SCH (09:12)
[2021-02-01] MEDS: LIDOCAINE 5% PATCH TOP SCH (09:12)
[2021-02-01] MEDS: ONDANSETRON HCL 4MG/2ML INJ IV PRN ×2 (09:27→20:32)
[2021-02-01] MEDS ORDERED: METHOCARBAMOL 500MG TABLET PO PRN (10:15)
[2021-02-01] MEDS ORDERED: TRAMADOL 50MG TABLET PO PRN (10:15)
[2021-02-01] MEDS: HYDROCODONE/APAP 7.5/325MG 1 TAB TABLET PO PRN ×3 (10:16→17:29)
[2021-02-01] MEDS ORDERED: OXYCODONE HCL 5MG TABLET PO SCH (12:16)
[2021-02-01 14:41] VITALS: BP 156/52
[2021-02-01 20:00] VITALS: BP 146/39
[2021-02-02] MEDS: IPRATROPIUM/ALBUTEROL 0.5-3(2.5)MG/3ML NEB HHN SCH ×3 (01:15→20:06)
[2021-02-02] MEDS: ACETAMINOPHEN 500MG TABLET PO SCH ×5 (02:30→21:51)
[2021-02-02] MEDS: BLOOD SUGAR DIAGNOSTIC STRIP TEST SCH ×4 (06:02→21:52)
[2021-02-02] MEDS: HYDRALAZINE HCL 25MG TABLET PO SCH ×3 (06:03→21:52)
[2021-02-02] MEDS: LEVOTHYROXINE SODIUM 25MCG TABLET PO SCH (06:03)
[2021-02-02] MEDS: ONDANSETRON HCL 4MG/2ML INJ IV PRN (07:23)
[2021-02-02] MEDS: INSULIN LISPRO 100 UNITS/ML SUBCUT SCH ×4 (07:30→22:41)
[2021-02-02 08:00] VITALS: BP 130/45
[2021-02-02] MEDS: LIDOCAINE 5% PATCH TOP SCH (08:34)
[2021-02-02] MEDS: SODIUM BICARBONATE 650 MG TABLET PO SCH ×2 (08:35→18:31)
[2021-02-02] MEDS: AMLODIPINE 10MG TABLET PO SCH (08:35)
[2021-02-02] MEDS: DULOXETINE HCL 60MG DR CAPSULE PO SCH (08:35)
[2021-02-02] MEDS: ENOXAPARIN 40MG/0.4ML SYR SUBCUT SCH (08:36)
[2021-02-02] MEDS: HYDROCODONE/APAP 7.5/325MG 1 TAB TABLET PO PRN (11:17)
[2021-02-02] MEDS: ACETAMINOPHEN 325MG TABLET PO PRN (13:11)
[2021-02-02] MEDS: OMEPRAZOLE 20MG CAPSULE EXTENDED RELEASE PO SCH (13:12)
[2021-02-02] MEDS: ONDANSETRON 4MG ODT PO PRN (13:52)
[2021-02-02] MEDS ORDERED: VANCOMYCIN 1,750 MG in DEXT 5% WATER 250 ML IV NR (19:00)
[2021-02-02 20:00] VITALS: BP 115/64
[2021-02-02] MEDS ORDERED: LEVOFLOXACIN 500MG PREMIX 100 ML IV SCH (20:00)
[2021-02-03] MEDS: IPRATROPIUM/ALBUTEROL 0.5-3(2.5)MG/3ML NEB HHN SCH ×4 (00:33→19:55)
[2021-02-03] MEDS: SODIUM BICARBONATE 650 MG TABLET PO SCH ×3 (01:02→17:07)
[2021-02-03] MEDS: ACETAMINOPHEN 500MG TABLET PO SCH ×4 (02:30→20:30)
[2021-02-03] MEDS: BLOOD SUGAR DIAGNOSTIC STRIP TEST SCH ×4 (05:40→21:58)
[2021-02-03] MEDS: LEVOTHYROXINE SODIUM 25MCG TABLET PO SCH (06:10)
[2021-02-03] MEDS: HYDRALAZINE HCL 25MG TABLET PO SCH ×3 (06:11→21:59)
[2021-02-03] MEDS: OMEPRAZOLE 20MG CAPSULE EXTENDED RELEASE PO SCH (06:12)
[2021-02-03] MEDS: INSULIN LISPRO 100 UNITS/ML SUBCUT SCH ×4 (06:13→21:00)
[2021-02-03] MEDS ORDERED: HYDROCODONE/APAP 7.5/325MG 1 TAB TABLET PO PRN ×2 (06:15→11:00)
[2021-02-03 07:56] VITALS: BP 113/44
[2021-02-03] MEDS: AMLODIPINE 10MG TABLET PO SCH (08:59)
[2021-02-03] MEDS: LIDOCAINE 5% PATCH TOP SCH (09:00)
[2021-02-03] MEDS: DULOXETINE HCL 60MG DR CAPSULE PO SCH (13:00)
[2021-02-03] MEDS: HYDROCODONE/APAP 7.5/325MG 1 TAB TABLET PO PRN ×2 (13:01→22:00)
[2021-02-03] MEDS: ONDANSETRON 4MG ODT PO PRN (13:01)
[2021-02-03 15:28] LABS: BASOPHILS % 0.4 % (0.0-2.0); EOSINOPHILS % 1.1 % (0.0-5.0); HEMATOCRIT. 30.7 % (36.0-48.0); HEMOGLOBIN. 10.5 g/dL (12.0-16.0); LYMPHOCYTES % 15.5 % (20.0-50.0); MEAN CORPUSCULAR HEMOGLOBIN 29.8 pg (28.0-32.0); MEAN CORPUSCULAR VOLUME 87.5 fL (81.0-99.0); MEAN PLATELET VOLUME 8.7 fl (7.4-10.4); MONOCYTES % 6.2 % (2.0-8.0); NEUTROPHILS % 76.8 % (40.0-76.0); PLATELET 323 x1000/uL (130-400); RED BLOOD CELL COUNT 3.51 mill/uL (4.2-5.4); RED CELL DISTRIBUTION WIDTH 16.5 % (11.6-14.6)
[2021-02-03 20:00] VITALS: BP 133/46
[2021-02-04] MEDS: IPRATROPIUM/ALBUTEROL 0.5-3(2.5)MG/3ML NEB HHN SCH ×4 (00:59→20:55)
[2021-02-04] MEDS: ACETAMINOPHEN 500MG TABLET PO SCH ×4 (01:22→20:30)
[2021-02-04] MEDS: SODIUM BICARBONATE 650 MG TABLET PO SCH ×3 (01:22→19:44)
[2021-02-04] MEDS: BLOOD SUGAR DIAGNOSTIC STRIP TEST SCH ×4 (05:47→21:00)
[2021-02-04] MEDS: OMEPRAZOLE 20MG CAPSULE EXTENDED RELEASE PO SCH (05:56)
[2021-02-04] MEDS: ONDANSETRON 4MG ODT PO PRN (05:57)
[2021-02-04] MEDS: HYDRALAZINE HCL 25MG TABLET PO SCH ×3 (05:57→21:38)
[2021-02-04] MEDS: LEVOTHYROXINE SODIUM 25MCG TABLET PO SCH (05:58)
[2021-02-04] MEDS: HYDROCODONE/APAP 7.5/325MG 1 TAB TABLET PO PRN ×3 (05:58→19:56)
[2021-02-04] MEDS: INSULIN LISPRO 100 UNITS/ML SUBCUT SCH ×4 (06:19→21:00)
[2021-02-04 08:14] VITALS: BP 143/50
[2021-02-04] MEDS: BISACODYL 5MG TABLET PO PRN (08:36)
[2021-02-04] MEDS: AMLODIPINE 10MG TABLET PO SCH (08:36)
[2021-02-04] MEDS: DULOXETINE HCL 60MG DR CAPSULE PO SCH (08:36)
[2021-02-04] MEDS: LIDOCAINE 5% PATCH TOP SCH (10:04)
[2021-02-04] MEDS ORDERED: LEVOFLOXACIN 500MG PREMIX 100 ML IV SCH (11:00)
[2021-02-04] MEDS ORDERED: VANCOMYCIN 1 G PREMIX 200 ML IV SCH (18:00)
[2021-02-04 20:00] VITALS: BP 152/69
[2021-02-05] MEDS: IPRATROPIUM/ALBUTEROL 0.5-3(2.5)MG/3ML NEB HHN SCH ×4 (02:16→21:10)
[2021-02-05] MEDS: ACETAMINOPHEN 500MG TABLET PO SCH ×5 (02:41→21:24)
[2021-02-05] MEDS: SODIUM BICARBONATE 650 MG TABLET PO SCH ×3 (02:41→16:38)
[2021-02-05] MEDS: BLOOD SUGAR DIAGNOSTIC STRIP TEST SCH ×4 (05:58→21:24)
[2021-02-05] MEDS: OMEPRAZOLE 20MG CAPSULE EXTENDED RELEASE PO SCH (06:01)
[2021-02-05] MEDS: ONDANSETRON 4MG ODT PO PRN (06:01)
[2021-02-05] MEDS: HYDRALAZINE HCL 25MG TABLET PO SCH ×3 (06:02→21:24)
[2021-02-05] MEDS: LEVOTHYROXINE SODIUM 25MCG TABLET PO SCH (06:02)
[2021-02-05] MEDS: HYDROCODONE/APAP 7.5/325MG 1 TAB TABLET PO PRN ×3 (06:03→21:32)
[2021-02-05] MEDS: INSULIN LISPRO 100 UNITS/ML SUBCUT SCH ×4 (06:07→21:36)
[2021-02-05 06:28] LABS: HEMATOCRIT 29.9 % (36.0-48.0); HEMOGLOBIN 9.8 g/dL (12.0-16.0); MEAN CORPUSCULAR HEMOGLOBIN 29.4 pg (28.0-32.0); MEAN CORPUSCULAR VOLUME 89.6 fL (81.0-99.0); PLATELET 298 x1000/uL (130-400); RED BLOOD CELL COUNT 3.34 mill/uL (4.2-5.4); RED CELL DISTRIBUTION WIDTH 17.1 % (11.6-14.6)
[2021-02-05] MEDS: DULOXETINE HCL 60MG DR CAPSULE PO SCH (08:22)
[2021-02-05] MEDS: AMLODIPINE 10MG TABLET PO SCH (08:22)
[2021-02-05] MEDS: ERGOCALCIFEROL 50000UNITS CAPSULE PO SCH (08:22)
[2021-02-05] MEDS: LIDOCAINE 5% PATCH TOP SCH (08:23)
[2021-02-05 08:25] VITALS: BP 133/56
[2021-02-05 20:00] VITALS: BP 108/48
[2021-02-06] MEDS: ACETAMINOPHEN 500MG TABLET PO SCH ×4 (02:30→20:30)
[2021-02-06] MEDS: HYDROCODONE/APAP 7.5/325MG 1 TAB TABLET PO PRN ×2 (02:54→21:09)
[2021-02-06] MEDS: IPRATROPIUM/ALBUTEROL 0.5-3(2.5)MG/3ML NEB HHN SCH ×2 (04:43→07:29)
[2021-02-06] MEDS: BLOOD SUGAR DIAGNOSTIC STRIP TEST SCH ×4 (06:20→21:00)
[2021-02-06] MEDS: HYDRALAZINE HCL 25MG TABLET PO SCH ×3 (06:20→21:08)
[2021-02-06] MEDS: OMEPRAZOLE 20MG CAPSULE EXTENDED RELEASE PO SCH (06:21)
[2021-02-06] MEDS: BISACODYL 5MG TABLET PO PRN (06:21)
[2021-02-06] MEDS: LEVOTHYROXINE SODIUM 25MCG TABLET PO SCH (06:21)
[2021-02-06] MEDS: INSULIN LISPRO 100 UNITS/ML SUBCUT SCH ×4 (06:39→22:48)
[2021-02-06 08:00] VITALS: BP 115/61
[2021-02-06] MEDS: AMLODIPINE 10MG TABLET PO SCH (08:31)
[2021-02-06] MEDS: DULOXETINE HCL 60MG DR CAPSULE PO SCH (08:31)
[2021-02-06] MEDS: LIDOCAINE 5% PATCH TOP SCH (08:32)
[2021-02-06] MEDS: SODIUM BICARBONATE 650 MG TABLET PO SCH ×3 (08:32→16:52)
[2021-02-06] MEDS ORDERED: BIMA2.5D4 EACHEYE (17:31)
[2021-02-06] MEDS ORDERED: ALBU90AE INH (17:31)
[2021-02-06] MEDS ORDERED: SODI650T MT (17:32)
[2021-02-06] MEDS ORDERED: HYDR-4135 PO (17:32)
[2021-02-06] MEDS ORDERED: AMLO10TA4 MT (17:32)
[2021-02-06] MEDS ORDERED: FAMO-135 PO (17:32)
[2021-02-06] MEDS ORDERED: HYDR-4005 MT (17:32)
[2021-02-06] MEDS ORDERED: LEVO25TA2 MT (17:32)
[2021-02-06] MEDS ORDERED: DULO60CA64 MT (17:32)
[2021-02-06 20:00] VITALS: BP 131/45
[2021-02-07] MEDS: SODIUM BICARBONATE 650 MG TABLET PO SCH ×2 (00:35→08:38)
[2021-02-07] MEDS: ACETAMINOPHEN 500MG TABLET PO SCH ×2 (02:30→08:39)
[2021-02-07] MEDS: HYDRALAZINE HCL 25MG TABLET PO SCH (06:05)
[2021-02-07] MEDS: INSULIN LISPRO 100 UNITS/ML SUBCUT SCH ×2 (06:06→12:21)
[2021-02-07] MEDS: BLOOD SUGAR DIAGNOSTIC STRIP TEST SCH ×2 (06:06→12:08)
[2021-02-07] MEDS: OMEPRAZOLE 20MG CAPSULE EXTENDED RELEASE PO SCH (06:06)
[2021-02-07] MEDS: LEVOTHYROXINE SODIUM 25MCG TABLET PO SCH (06:06)
[2021-02-07] MEDS: HYDROCODONE/APAP 7.5/325MG 1 TAB TABLET PO PRN (06:34)
[2021-02-07 07:47] VITALS: BP 113/42
[2021-02-07] MEDS: AMLODIPINE 10MG TABLET PO SCH (08:38)
[2021-02-07] MEDS: LIDOCAINE 5% PATCH TOP SCH (08:39)
[2021-02-07] MEDS: DULOXETINE HCL 60MG DR CAPSULE PO SCH (08:39)
[2021-02-07 13:23] VITALS: BP 113/72
[2021-02-07] MEDS ORDERED: NALOXONE HCL 0.4MG/ML VIAL IV PRN (14:15)
== END 2021-02-07 15:00 | disposition home or self-care (01) | DRG 70 ==
PROVIDERS: ADMIT Physical Medicine & Rehabilitation Spinal Cord Injury Medicine; ATTEND Internal Medicine
DX: G93.41 Metabolic encephalopathy (principal); A41.9 Sepsis, unspecified organism; G82.50 Quadriplegia, unspecified; N17.9 Acute kidney failure, unspecified; M48.54XA Collapsed vertebra, not elsewhere classified, thoracic region, initial encounter for fracture; L97.909 Non-pressure chronic ulcer of unspecified part of unspecified lower leg with unspecified severity; E87.2 Acidosis; Z68.41 Body mass index [BMI] 40.0-44.9, adult; L03.113 Cellulitis of right upper limb; J45.901 Unspecified asthma with (acute) exacerbation; B96.89 Other specified bacterial agents as the cause of diseases classified elsewhere; M48.061 Spinal stenosis, lumbar region without neurogenic claudication; M17.0 Bilateral primary osteoarthritis of knee; M48.02 Spinal stenosis, cervical region; R53.81 Other malaise; E66.01 Morbid (severe) obesity due to excess calories; E03.9 Hypothyroidism, unspecified; R13.10 Dysphagia, unspecified; D64.9 Anemia, unspecified; E55.9 Vitamin D deficiency, unspecified; E78.5 Hyperlipidemia, unspecified; E87.6 Hypokalemia; G89.4 Chronic pain syndrome; M47.26 Other spondylosis with radiculopathy, lumbar region; M51.16 Intervertebral disc disorders with radiculopathy, lumbar region; K57.90 Diverticulosis of intestine, part unspecified, without perforation or abscess without bleeding; M75.01 Adhesive capsulitis of right shoulder; M75.02 Adhesive capsulitis of left shoulder; M47.22 Other spondylosis with radiculopathy, cervical region; E11.22 Type 2 diabetes mellitus with diabetic chronic kidney disease; I12.9 Hypertensive chronic kidney disease with stage 1 through stage 4 chronic kidney disease, or unspecified chronic kidney disease; N18.9 Chronic kidney disease, unspecified; Z86.718 Personal history of other venous thrombosis and embolism
CPT/HCPCS: 36415; 70551; 73060; 73090; 74018; 76770; 80048; 80053; 80202; 81003; 82140; 82270; 82306; 82607; 82728; 82746; 82962; 83540; 83550; 84134; 84443; 85025; 85027; 92523; 92610; 93922; 93970; 93971; 94640; 97110; 97116; 97162; 97166; 97530; 97535; J1650; J1815; J1956; J2405; J2543; J3370; J7030; J7040; J7060; Q0162; A4315

== ENCOUNTER 2021-03-04 20:49 | Inpatient (IN) | payer MEDICARE, MEDICAID ==
[~2021-03-04] VITALS: Ht 160 cm; Wt 107.5 kg
[~2021-03-04 20:49] MED LIST changes: +AMLO10TA4 MT; -CLON0.1T MT; -DULO30CA52 MT; -DULO60CA44 PO; +DULO60CA64 MT; -FURO40TA5 PO; -GABA-529 PO; -HYDR-4001 MT; +HYDR-4005 MT; +HYDR-4135 PO; -HYDR-519 PO; -INSU100I28 SQ; -LEVO250T58 MT; -LEVVL SQ; -METO-539 MT; -METO2.5T2 MT; -NIFE90TA2 MT; -PYRI200T10 PO; +SODI650T MT; -SODIUM BICARBONATE 650 MG TABLET PO SCH
[2021-03-04] MEDS ORDERED: AZITHROMYCIN 500 MG in DEXT 5% WATER 250 ML IV STA (22:12)
[2021-03-04] MEDS ORDERED: DEXAMETHASONE 10 MG/ML VIAL IV ONE (22:15)
[2021-03-04] MEDS ORDERED: ACETAMINOPHEN 325MG TABLET PO ONE (22:15)
[2021-03-04] MEDS ORDERED: SODIUM CHLORIDE 0.9% 500 ML IV ONE (22:15)
[2021-03-04] MEDS ORDERED: CEFTRIAXONE 1 G PREMIX 50 ML IV ONE (22:15)
[2021-03-04 22:24] LABS: BASOPHILS % 1.1 % (0.0-2.0); EOSINOPHILS % 3.1 % (0.0-5.0); HEMATOCRIT. 31.2 % (36.0-48.0); HEMOGLOBIN. 10.8 g/dL (12.0-16.0); LYMPHOCYTES % 26.5 % (20.0-50.0); MEAN CORPUSCULAR HEMOGLOBIN 30.1 pg (28.0-32.0); MEAN PLATELET VOLUME 8.9 fl (7.4-10.4); MONOCYTES % 9.1 % (2.0-8.0); NEUTROPHILS % 60.2 % (40.0-76.0); PLATELET 347 x1000/uL (130-400); RED BLOOD CELL COUNT 3.59 mill/uL (4.2-5.4); RED CELL DISTRIBUTION WIDTH 16.3 % (11.6-14.6)
[2021-03-04 22:30] LABS: CHLORIDE 97 mEq/L (98-107)
[2021-03-04 22:33] LABS: PROTHROMBIN TIME 11.2 sec (9.6-11.0)
[2021-03-04 22:39] LABS: T4 FREE 1.13 ng/dL (0.76-1.46)
[2021-03-05 03:35] LABS: CLARITY URINE CLOUDY (CLEAR); COLOR URINE YELLOW (YELLOW); KETONES URINE TRACE (NEGATIVE); LEUKOCYTE ESTERASE URINE 3+ (NEGATIVE); NITRITE URINE POSITIVE (NEGATIVE); OCCULT BLOOD URINE NEGATIVE (NEGATIVE); PH URINE 7.5 (4.5-8.0); PROTEIN URINE 2+ (NEGATIVE); SPECIFIC GRAVITY URINE 1.013 (1.005-1.030)
[2021-03-05] MEDS ORDERED: IPRATROPIUM/ALBUTEROL 0.5-3(2.5)MG/3ML NEB NEB PRN (11:00)
[2021-03-05] MEDS ORDERED: DEXTROSE 50% WATER 50ML SYRINGE IV PRN (11:00)
[2021-03-05] MEDS ORDERED: ONDANSETRON HCL 4MG/2ML INJ IV PRN (11:00)
[2021-03-05] MEDS ORDERED: NA PHOS,M-B/NA PHOS,DI-BA ENEMA 118ML PR PRN (11:00)
[2021-03-05] MEDS ORDERED: ACETAMINOPHEN 325MG TABLET PO PRN (11:00)
[2021-03-05] MEDS ORDERED: CEFTRIAXONE 1 G PREMIX 50 ML IV SCH (11:00)
[2021-03-05] MEDS ORDERED: CLONIDINE 0.1MG TABLET PO PRN (11:00)
[2021-03-05] MEDS ORDERED: DOCUSATE SODIUM 100MG CAPSULE PO PRN (11:00)
[2021-03-05] MEDS ORDERED: LORAZEPAM 0.5MG TABLET PO PRN (11:00)
[2021-03-05] MEDS ORDERED: GUAIFENESIN 200MG/10ML SUGAR FREE UDC PO PRN (11:00)
[2021-03-05] MEDS ORDERED: HYDROCODONE/ACETAMINOPHEN 5/325MG TABLET PO PRN (11:00)
[2021-03-05] MEDS ORDERED: ACETAMINOPHEN 650MG SUPP PR PRN (11:00)
[2021-03-05] MEDS ORDERED: MAGNESIUM/ALUMINUM HYDROXIDE/SIMETHICONE 30ML UDC PO PRN (11:00)
[2021-03-05] MEDS ORDERED: NALOXONE HCL 0.4MG/ML VIAL IV PRN (11:15)
[2021-03-05] MEDS: BLOOD SUGAR DIAGNOSTIC STRIP TEST SCH ×3 (11:30→21:00)
[2021-03-05 11:45] LABS: BG CARBOXYHEMOGLOBIN 0.3 % (0.5-1.5); BG DEOXYHEMOGLOBIN 5.2 % (0.0-5.0); BG FRACTION INSPIRED OXYGEN 21; BG HCO3 ACT 26.7 mmol/L (22.0-26.0); BG METHEMOGLOBIN 0.3 % (0.0-1.5); BG OXYGEN SATURATION 94.8 % (92.0-98.5); BG OXYHEMOGLOBIN 94.2 % (94.0-97.0); BG PCO2 37.3 mmHg (35.0-45.0); BG PH 7.472 (7.350-7.450); BG PO2 70.7 mmHg (75.0-100.0); BG SAMPLE SITE LEFT RADIAL; BG TOTAL HEMOGLOBIN 12.2 g/dL (12.0-18.0); BG VENT MODE ROOM AIR
[2021-03-05] MEDS: METHYLPREDNISOLONE SOD SUCC 40 MG/ML VIAL IV SCH ×2 (12:56→19:20)
[2021-03-05] MEDS: ENOXAPARIN 40MG/0.4ML SYR SUBCUT SCH ×2 (12:56→22:59)
[2021-03-05] MEDS: INSULIN LISPRO 100 UNITS/ML SUBCUT SCH ×3 (13:33→23:00)
[2021-03-05] MEDS ORDERED: MEDICATION NOT ON FORMULARY EA (Brimonidine Tartrate (Alphagan P) 1 DROP) EACHEYE SCH (14:00)
[2021-03-05] MEDS ORDERED: CEFTRIAXONE 1,000 MG in DEXTROSE 5% WATER 50 ML IV SCH (14:00)
[2021-03-05] MEDS: BRIMONIDINE 0.2% OPHTH DROPS 5ML EACHEYE SCH ×2 (15:22→22:00)
[2021-03-05] MEDS: FUROSEMIDE 40MG/4ML VIAL IVP SCH (15:23)
[2021-03-05] MEDS ORDERED: CEFTRIAXONE SODIUM 1 G/VIAL ONE (15:24)
[2021-03-05 16:11] LABS: CREATINE KINASE 99 IU/L (26-192); CREATINE KINASE MB FRACTION < 1.0 ng/mL (0.5-3.6)
[2021-03-05] MEDS ORDERED: FAMOTIDINE 20MG TABLET PO SCH (21:00)
[2021-03-05] MEDS ORDERED: MEDICATION NOT ON FORMULARY EA (Bimatoprost (Lumigan) 1 DROP) EACHEYE SCH (21:00)
[2021-03-05] MEDS ORDERED: LATANOPROST 0.005% OPHTH DROPS 2.5ML EACHEYE SCH (21:00)
[2021-03-05 22:15] VITALS: BP 157/65
[2021-03-05 22:30] VITALS: BP 157/65
[2021-03-06] VITALS: BP 134/82
[2021-03-06] MEDS ORDERED: AZITHROMYCIN 500 MG in DEXT 5% WATER 250 ML IV SCH ×2 (01:00→06:00)
[2021-03-06] MEDS: METHYLPREDNISOLONE SOD SUCC 40 MG/ML VIAL IV SCH ×2 (03:11→12:08)
[2021-03-06 04:00] VITALS: BP 150/69
[2021-03-06] MEDS ORDERED: DULO30CA52 PO (04:29)
[2021-03-06] MEDS ORDERED: LEVVL SQ (04:29)
[2021-03-06] MEDS ORDERED: LINA145C PO (04:29)
[2021-03-06] MEDS ORDERED: HYDR-4009 PO (04:29)
[2021-03-06] MEDS ORDERED: GABA-529 PO (04:30)
[2021-03-06] MEDS: BRIMONIDINE 0.2% OPHTH DROPS 5ML EACHEYE SCH (06:23)
[2021-03-06] MEDS: BLOOD SUGAR DIAGNOSTIC STRIP TEST SCH ×2 (06:23→12:59)
[2021-03-06] MEDS ORDERED: LEVOTHYROXINE SODIUM 25MCG TABLET PO SCH (06:30)
[2021-03-06] MEDS: IPRATROPIUM/ALBUTEROL 0.5-3(2.5)MG/3ML NEB NEB SCH ×2 (07:29→13:02)
[2021-03-06 08:00] VITALS: BP 151/65
[2021-03-06] MEDS: FUROSEMIDE 40MG/4ML VIAL IVP SCH (08:35)
[2021-03-06] MEDS: ENOXAPARIN 40MG/0.4ML SYR SUBCUT SCH (08:35)
[2021-03-06] MEDS: INSULIN LISPRO 100 UNITS/ML SUBCUT SCH ×2 (08:37→13:14)
[2021-03-06] MEDS ORDERED: DULOXETINE HCL 60MG DR CAPSULE PO SCH (09:00)
[2021-03-06] MEDS ORDERED: AMLODIPINE 10MG TABLET PO SCH (09:00)
[2021-03-06] MEDS ORDERED: VANCOMYCIN 2,000 MG in DEXT 5% WATER 500 ML IV SCH (09:00)
[2021-03-06 09:32] LABS: BASOPHILS % 0.1 % (0.0-2.0); HEMOGLOBIN. 10.6 g/dL (12.0-16.0); MEAN CORPUSCULAR HEMOGLOBIN 28.6 pg (28.0-32.0); MEAN CORPUSCULAR VOLUME 88.9 fL (81.0-99.0); MEAN PLATELET VOLUME 8.9 fl (7.4-10.4); MONOCYTES % 2.1 % (2.0-8.0); NEUTROPHILS % 88.8 % (40.0-76.0); PLATELET 371 x1000/uL (130-400); RED BLOOD CELL COUNT 3.71 mill/uL (4.2-5.4); RED CELL DISTRIBUTION WIDTH 16.2 % (11.6-14.6)
[2021-03-06 09:52] LABS: CHLORIDE 98 mEq/L (98-107)
[2021-03-06 10:01] LABS: HDL CHOLESTEROL 31 mg/dL (40-59); LDL CHOLESTEROL 109 mg/dL (5-100)
[2021-03-06 10:02] LABS: CREATINE KINASE 123 IU/L (26-192); CREATINE KINASE MB FRACTION 1.1 ng/mL (0.5-3.6); T4 FREE 1.09 ng/dL (0.76-1.46)
[2021-03-06 12:00] VITALS: BP 135/61
[2021-03-06] MEDS ORDERED: INSU100I28 SQ (12:38)
[2021-03-06] MEDS ORDERED: LEVO250T58 MT (12:38)
[2021-03-06] MEDS ORDERED: ALBU90AE INH (12:38)
[2021-03-06] MEDS ORDERED: P20 PO (12:38)
[2021-03-06 13:37] VITALS: BP 127/48
== END 2021-03-06 15:05 | disposition hospice, home (50) | DRG 871 ==
LOC: ER 20:49 → MICUSO 03-05 00:14 → EDBEDREQ 03-05 00:19 → EDBEDREQTM 03-05 00:19 → 6WST 03-05 20:50
PROVIDERS: ADMIT Internal Medicine; ATTEND Internal Medicine
DX: A41.9 Sepsis, unspecified organism (principal); G93.41 Metabolic encephalopathy; J18.9 Pneumonia, unspecified organism; I13.0 Hypertensive heart and chronic kidney disease with heart failure and stage 1 through stage 4 chronic kidney disease, or unspecified chronic kidney disease; J45.901 Unspecified asthma with (acute) exacerbation; N39.0 Urinary tract infection, site not specified; D64.9 Anemia, unspecified; E03.9 Hypothyroidism, unspecified; E11.22 Type 2 diabetes mellitus with diabetic chronic kidney disease; E11.65 Type 2 diabetes mellitus with hyperglycemia; E66.9 Obesity, unspecified; E78.5 Hyperlipidemia, unspecified; R06.03 Acute respiratory distress; R09.02 Hypoxemia; I50.9 Heart failure, unspecified; M47.816 Spondylosis without myelopathy or radiculopathy, lumbar region; N18.9 Chronic kidney disease, unspecified; Z20.822 Contact with and (suspected) exposure to COVID-19; Z79.02 Long term (current) use of antithrombotics/antiplatelets; Z79.899 Other long term (current) drug therapy
CPT/HCPCS: 36415; 36600; 71045; 80053; 80061; 81003; 82375; 82550; 82553; 82805; 82962; 83036; 83605; 83880; 84145; 84439; 84443; 84484; 85025; 87077; 87186; 87426; 93005; 93970; 94640; 97162; 99291; J0456; J0696; J1100; J1650; J1815; J1940; J2920; J3370; J7040; J7060; U0003; U0005

== ENCOUNTER 2022-09-09 12:01 | Inpatient (IN) | payer MEDICARE, MEDICAID ==
[~2022-09-09] VITALS: Ht 172.7 cm; Wt 104.3 kg
[~2022-09-09 12:01] MED LIST changes: +DULO30CA52 PO; -FAMO-135 PO; +GABA-529 PO; -HYDR-4005 MT; +HYDR-4009 PO; +INSU100I28 SQ; +LEVO250T74 MT; +LINA145C PO; +P20 PO; -SODI650T MT
[2022-09-09] MEDS ORDERED: IOHEXOL-350 100 ML BOTTLE ONE (13:01)
[2022-09-09 13:09] LABS: BASOPHILS % 0.5 % (0.0-2.0); EOSINOPHILS % 3.5 % (0.0-5.0); HEMOGLOBIN. 10.9 g/dL (12.0-16.0); LYMPHOCYTES % 31.6 % (20.0-50.0); MEAN CORPUSCULAR HEMOGLOBIN 28.9 pg (28.0-32.0); MEAN PLATELET VOLUME 8.6 fl (7.4-10.4); MONOCYTES % 6.9 % (2.0-8.0); NEUTROPHILS % 57.5 % (40.0-76.0); PLATELET 236 x1000/uL (130-400); RED BLOOD CELL COUNT 3.76 mill/uL (4.2-5.4); RED CELL DISTRIBUTION WIDTH 14.9 % (11.6-14.6)
[2022-09-09 13:17] LABS: CHLORIDE 99 mEq/L (98-107)
[2022-09-09 13:35] LABS: ETHANOL BLOOD < 10 mg/dL
[2022-09-09 15:48] LABS: CLARITY URINE TURBID (CLEAR); COLOR URINE YELLOW (YELLOW); KETONES URINE NEGATIVE (NEGATIVE); LEUKOCYTE ESTERASE URINE 3+ (NEGATIVE); NITRITE URINE NEGATIVE (NEGATIVE); OCCULT BLOOD URINE TRACE (NEGATIVE); PH URINE 5.5 (4.5-8.0); PROTEIN URINE 3+ (NEGATIVE); SPECIFIC GRAVITY URINE 1.029 (1.005-1.030); UROBILINOGEN URINE 0.2 E.U./dL (0.2-1.0)
[2022-09-09 16:07] LABS: *AMPHETAMINES SCREEN URINE NEGATIVE (NEGATIVE); *BARBITURATES SCREEN URINE NEGATIVE (NEGATIVE); *BENZODIAZEPINES SCREEN URINE NEGATIVE (NEGATIVE); *COCAINE SCREEN URINE NEGATIVE (NEGATIVE); CANNABINOID URINE SCREEN NEGATIVE (NEGATIVE); METHADONE URINE SCREEN NEGATIVE (NEGATIVE); OPIATES URINE SCREEN PRESUMTIVE POSITIVE (NEGATIVE); PHENCYCLIDINE URINE SCREEN NEGATIVE (NEGATIVE)
[2022-09-09] MEDS ORDERED: ACETAMINOPHEN 325MG TABLET PO ONE (18:45)
[2022-09-09] MEDS ORDERED: ASPIRIN 81MG TABLET PO ONE (20:30)
[2022-09-09] MEDS ORDERED: CLOPIDOGREL 75MG TABLET PO ONE (20:30)
[2022-09-10 02:00] VITALS: BP 176/87
[2022-09-10] MEDS ORDERED: LORAZEPAM 1MG TABLET PO PRN (03:00)
[2022-09-10] MEDS ORDERED: DEXTROSE 50% WATER 50ML SYRINGE IV PRN (03:00)
[2022-09-10 04:00] VITALS: BP 170/74
[2022-09-10 06:13] LABS: BASOPHILS % 0.8 % (0.0-2.0); EOSINOPHILS % 4.6 % (0.0-5.0); HEMATOCRIT. 32.9 % (36.0-48.0); HEMOGLOBIN. 10.8 g/dL (12.0-16.0); MEAN CORPUSCULAR HEMOGLOBIN 28.8 pg (28.0-32.0); MEAN CORPUSCULAR VOLUME 87.9 fL (81.0-99.0); MONOCYTES % 7.1 % (2.0-8.0); NEUTROPHILS % 56.5 % (40.0-76.0); PLATELET 242 x1000/uL (130-400); RED BLOOD CELL COUNT 3.74 mill/uL (4.2-5.4); RED CELL DISTRIBUTION WIDTH 14.6 % (11.6-14.6)
[2022-09-10] MEDS: BLOOD SUGAR DIAGNOSTIC STRIP TEST SCH ×4 (07:40→21:41)
[2022-09-10 08:00] VITALS: BP 179/75
[2022-09-10] MEDS: INSULIN LISPRO 100 UNITS/ML SUBCUT SCH ×4 (08:50→20:30)
[2022-09-10] MEDS: GABAPENTIN 100MG CAPSULE PO SCH ×3 (08:51→17:48)
[2022-09-10] MEDS: ASPIRIN 81MG TABLET PO SCH (08:51)
[2022-09-10] MEDS: ENOXAPARIN 30MG/0.3ML SYR SUBCUT SCH ×2 (08:51→20:28)
[2022-09-10] MEDS: FUROSEMIDE 40MG TABLET PO SCH (08:52)
[2022-09-10] MEDS: CLOPIDOGREL 75MG TABLET PO SCH (08:52)
[2022-09-10] MEDS: HYDRALAZINE HCL 25MG TABLET PO SCH ×3 (08:53→17:48)
[2022-09-10 12:00] VITALS: BP 152/64
[2022-09-10] MEDS ORDERED: CEFTRIAXONE 1 G PREMIX 50 ML IV SCH (15:30)
[2022-09-10] MEDS ORDERED: NALOXONE HCL 0.4MG/ML VIAL IV PRN (15:30)
[2022-09-10 16:00] VITALS: BP 148/62
[2022-09-10] MEDS: CEFTRIAXONE 1,000 MG in DEXTROSE 5% WATER 50 ML IV SCH (17:48)
[2022-09-10 20:00] VITALS: BP 183/65
[2022-09-10] MEDS: CLONIDINE 0.1MG TABLET PO PRN (20:28)
[2022-09-10] MEDS: ATORVASTATIN CALCIUM 40MG TABLET PO SCH (20:28)
[2022-09-11] VITALS: BP 155/60
[2022-09-11 04:00] VITALS: BP 143/62
[2022-09-11] MEDS: BLOOD SUGAR DIAGNOSTIC STRIP TEST SCH ×4 (07:40→20:14)
[2022-09-11 08:00] VITALS: BP 175/72
[2022-09-11] MEDS: HYDRALAZINE HCL 25MG TABLET PO SCH ×3 (09:03→16:43)
[2022-09-11] MEDS: INSULIN LISPRO 100 UNITS/ML SUBCUT SCH ×4 (09:03→20:20)
[2022-09-11] MEDS: GABAPENTIN 100MG CAPSULE PO SCH ×3 (09:03→16:43)
[2022-09-11] MEDS: ASPIRIN 81MG TABLET PO SCH (09:03)
[2022-09-11] MEDS: CLOPIDOGREL 75MG TABLET PO SCH (09:04)
[2022-09-11] MEDS: ENOXAPARIN 30MG/0.3ML SYR SUBCUT SCH ×2 (09:04→20:14)
[2022-09-11] MEDS: FUROSEMIDE 40MG TABLET PO SCH (09:04)
[2022-09-11] MEDS: HYDROCODONE/ACETAMINOPHEN 10/325MG TABLET PO PRN ×2 (10:48→20:13)
[2022-09-11 12:00] VITALS: BP 170/70
[2022-09-11 14:51] LABS: BASOPHILS % 0.7 % (0.0-2.0); EOSINOPHILS % 4.2 % (0.0-5.0); HEMATOCRIT. 34.2 % (36.0-48.0); HEMOGLOBIN. 11.3 g/dL (12.0-16.0); LYMPHOCYTES % 31.4 % (20.0-50.0); MEAN CORPUSCULAR HEMOGLOBIN 28.9 pg (28.0-32.0); MEAN CORPUSCULAR VOLUME 87.3 fL (81.0-99.0); MEAN PLATELET VOLUME 8.9 fl (7.4-10.4); MONOCYTES % 7.8 % (2.0-8.0); NEUTROPHILS % 55.9 % (40.0-76.0); PLATELET 229 x1000/uL (130-400); RED BLOOD CELL COUNT 3.92 mill/uL (4.2-5.4); RED CELL DISTRIBUTION WIDTH 14.9 % (11.6-14.6)
[2022-09-11 16:00] VITALS: BP 157/58
[2022-09-11] MEDS: CEFTRIAXONE 1,000 MG in DEXTROSE 5% WATER 50 ML IV SCH (16:42)
[2022-09-11 20:00] VITALS: BP 153/57
[2022-09-11] MEDS: ATORVASTATIN CALCIUM 40MG TABLET PO SCH (20:12)
[2022-09-11] MEDS ORDERED: ATORVASTATIN CALCIUM 40MG TABLET PO SCH (21:00)
[2022-09-11] MEDS ORDERED: BISACODYL 10MG SUPP RC PRN (21:30)
[2022-09-11] MEDS ORDERED: LACTULOSE 20G/30ML UDC PO NR (21:30)
[2022-09-11] MEDS: DICLOFENAC SODIUM 1% GEL 50GM TOP PRN (21:55)
[2022-09-12] VITALS: BP 156/61
[2022-09-12 04:00] VITALS: BP 153/66
[2022-09-12] MEDS: BLOOD SUGAR DIAGNOSTIC STRIP TEST SCH ×4 (06:19→21:00)
[2022-09-12 07:18] LABS: BASOPHILS % 1.1 % (0.0-2.0); EOSINOPHILS % 4.7 % (0.0-5.0); HEMATOCRIT. 32.5 % (36.0-48.0); HEMOGLOBIN. 10.9 g/dL (12.0-16.0); LYMPHOCYTES % 32.6 % (20.0-50.0); MEAN CORPUSCULAR HEMOGLOBIN 29.4 pg (28.0-32.0); MEAN CORPUSCULAR VOLUME 87.8 fL (81.0-99.0); MEAN PLATELET VOLUME 9.1 fl (7.4-10.4); MONOCYTES % 7.5 % (2.0-8.0); NEUTROPHILS % 54.1 % (40.0-76.0); PLATELET 225 x1000/uL (130-400); RED CELL DISTRIBUTION WIDTH 14.5 % (11.6-14.6)
[2022-09-12 08:00] VITALS: BP 150/45
[2022-09-12] MEDS: INSULIN LISPRO 100 UNITS/ML SUBCUT SCH ×4 (09:01→21:00)
[2022-09-12] MEDS: ASPIRIN 81MG TABLET PO SCH (09:03)
[2022-09-12] MEDS: HYDRALAZINE HCL 25MG TABLET PO SCH ×3 (09:03→17:11)
[2022-09-12] MEDS: CLOPIDOGREL 75MG TABLET PO SCH (09:03)
[2022-09-12] MEDS: FUROSEMIDE 40MG TABLET PO SCH (09:03)
[2022-09-12] MEDS: GABAPENTIN 100MG CAPSULE PO SCH ×3 (09:03→17:11)
[2022-09-12] MEDS: LACTULOSE 20G/30ML UDC PO SCH (09:04)
[2022-09-12] MEDS: ENOXAPARIN 30MG/0.3ML SYR SUBCUT SCH ×2 (09:05→21:44)
[2022-09-12 12:00] VITALS: BP 157/59
[2022-09-12 16:00] VITALS: BP 171/52
[2022-09-12] MEDS: CEFTRIAXONE 1,000 MG in DEXTROSE 5% WATER 50 ML IV SCH (17:07)
[2022-09-12 20:00] VITALS: BP 158/59
[2022-09-12] MEDS: ATORVASTATIN CALCIUM 40MG TABLET PO SCH (21:44)
[2022-09-12] MEDS: HYDROCODONE/ACETAMINOPHEN 10/325MG TABLET PO PRN (21:49)
[2022-09-13] VITALS (7 sets, daily range): BP systolic 108–172; BP diastolic 59–71
[2022-09-13] MEDS: HYDROCODONE/ACETAMINOPHEN 10/325MG TABLET PO PRN ×2 (05:51→16:09)
[2022-09-13] MEDS: INSULIN LISPRO 100 UNITS/ML SUBCUT SCH ×4 (07:18→21:39)
[2022-09-13] MEDS: BLOOD SUGAR DIAGNOSTIC STRIP TEST SCH ×4 (07:18→21:30)
[2022-09-13] MEDS: LACTULOSE 20G/30ML UDC PO SCH (08:54)
[2022-09-13] MEDS: FUROSEMIDE 40MG TABLET PO SCH (08:55)
[2022-09-13] MEDS: ENOXAPARIN 30MG/0.3ML SYR SUBCUT SCH ×2 (08:55→20:31)
[2022-09-13] MEDS: HYDRALAZINE HCL 25MG TABLET PO SCH ×3 (08:55→16:10)
[2022-09-13] MEDS: GABAPENTIN 100MG CAPSULE PO SCH ×3 (08:55→16:09)
[2022-09-13] MEDS: ASPIRIN 81MG TABLET PO SCH (08:56)
[2022-09-13] MEDS: CLOPIDOGREL 75MG TABLET PO SCH (08:58)
[2022-09-13] MEDS: CLONIDINE 0.1MG TABLET PO PRN ×2 (08:58→20:30)
[2022-09-13] MEDS: CEFTRIAXONE 1,000 MG in DEXTROSE 5% WATER 50 ML IV SCH (16:10)
[2022-09-13] MEDS: ATORVASTATIN CALCIUM 40MG TABLET PO SCH (20:30)
[2022-09-13] MEDS ORDERED: POLYVINYL ALCOHOL OPHTH DROPS 15ML RIGHTEYE PRN (22:00)
[2022-09-13] MEDS: DICLOFENAC SODIUM 1% GEL 50GM TOP PRN (23:11)
[2022-09-14] VITALS: BP 146/78
[2022-09-14] MEDS: CLONIDINE 0.1MG TABLET PO PRN ×2 (04:48→08:10)
[2022-09-14] MEDS: BLOOD SUGAR DIAGNOSTIC STRIP TEST SCH ×2 (06:47→12:01)
[2022-09-14 08:00] VITALS: BP 174/80
[2022-09-14] MEDS: ASPIRIN 81MG TABLET PO SCH (08:09)
[2022-09-14] MEDS: HYDRALAZINE HCL 25MG TABLET PO SCH ×2 (08:09→12:16)
[2022-09-14] MEDS: ENOXAPARIN 30MG/0.3ML SYR SUBCUT SCH (08:09)
[2022-09-14] MEDS: FUROSEMIDE 40MG TABLET PO SCH (08:10)
[2022-09-14] MEDS: GABAPENTIN 100MG CAPSULE PO SCH ×2 (08:10→12:15)
[2022-09-14] MEDS: INSULIN LISPRO 100 UNITS/ML SUBCUT SCH ×2 (08:10→12:17)
[2022-09-14] MEDS: CLOPIDOGREL 75MG TABLET PO SCH (08:10)
[2022-09-14 12:00] VITALS: BP 158/79
[2022-09-14] MEDS: LACTULOSE 20G/30ML UDC PO SCH (12:14)
== END 2022-09-14 14:29 | disposition hospice, home (50) | DRG 74 ==
LOC: ER 12:01 → 7WST 20:22
PROVIDERS: ADMIT Internal Medicine; ATTEND Internal Medicine
PROC: 4A00X4Z Measurement of Central Nervous Electrical Activity, External Approach (ICD-10-PCS; principal; 2022-09-13)
DX: G51.0 Bell's palsy (principal); N39.0 Urinary tract infection, site not specified; J45.909 Unspecified asthma, uncomplicated; E03.9 Hypothyroidism, unspecified; I10 Essential (primary) hypertension; H40.9 Unspecified glaucoma; E11.9 Type 2 diabetes mellitus without complications; Z88.6 Allergy status to analgesic agent; Z87.440 Personal history of urinary (tract) infections; Z88.8 Allergy status to other drugs, medicaments and biological substances; Z79.899 Other long term (current) drug therapy; Z68.34 Body mass index [BMI] 34.0-34.9, adult; Z51.5 Encounter for palliative care; E66.01 Morbid (severe) obesity due to excess calories; Z68.35 Body mass index [BMI] 35.0-35.9, adult
CPT/HCPCS: 36415; 70496; 70498; 70551; 71045; 80048; 80053; 80061; 80305; 80320; 81003; 82962; 83036; 84484; 85025; 87077; 87186; 93005; 93306; 95816; 99285; A6261; C1893; J0696; J1650; J1815; J7060; Q9967; G0480